=== PATIENT | female | born 1990 | race Caucasian/White ===

== ENCOUNTER 2017-08-29 09:29 | Emergency (ER) | payer MEDICAID ==
[2017-08-29 09:42] VITALS: BP 128/72
--- NOTE | 2017-08-29 10:14 | ED Physician Documentation ---
PD HPI LOWER EXT INJURY - Stated complaint Stated Complaint: FT PX - Chief complaint Chief Complaint: Ext Problem - History obtained from History obtained from: Patient - History of Present Illness PD HPI LOW EXT INJURY LOCATION: Right, Foot Type of injury: Twist Where injury occurred: Home Timing - onset: Enter time (2349), Last night Timing - duration: Hours Timing - details: Abrupt onset, Still present Improved by: Rest, Immobilization Worsened by: Moving, Palpating Associated symptoms: No: Weakness, Numbness, Tingling, Swelling Contributing factors: No: Anticoagulated Similar symptoms before: Has not had sx before Recently seen: Not recently seen - Additional information Additional information: 27-year-old female was walking down some steps last night in her home when she missed a step and twisted her foot. She complains of pain to the bottom of her foot into the lateral aspect of her foot. She denies any pain in her ankle. She has been able to bear some weight on this and has been able to walk but it hurts. She is worried about a fracture. Review of Systems Constitutional: denies: Fever Respiratory: denies: Cough GI: denies: Vomiting, Diarrhea : denies: Dysuria Musculoskeletal: reports: Pain with weight bearing. denies: Neck pain, Back pain PD PAST MEDICAL HISTORY - Past Medical History Past Medical History: No - Past Surgical History Past Surgical History: No - Present Medications Home Medications: Ambulatory Orders Medication Instructions Recorded Confirmed No Known Home Medications [No 08/29/17 08/29/17 Known Home Medications] - Allergies Allergies/Adverse Reactions: Allergies Allergy/AdvReac Type Severity Reaction Status Date / Time Penicillins Allergy Unknown Verified 08/29/17 09:46 - Social History Does the pt smoke?: Yes Smoking Status: Current every day smoker Does the pt drink ETOH?: No Does the pt have substance abuse?: No PD ED PE NORMAL - Vitals Vital signs reviewed: Yes (normal ) - General General: Alert and oriented X 3, No acute distress, Well developed/nourished - HEENT HEENT: Atraumatic, PERRL, EOMI - Neck Neck: Supple, no meningeal sign - Respiratory Respiratory: No respiratory distress - Derm Derm: Normal color, Warm and dry, No rash - Extremities Extremities: No deformity, No edema, Other (There is an abrasion on the dorsum of the right foot over the cuboid. There is no specific tenderness to the ankle or the talofibular ligament area. There is no tenderness to the proximal 5th. there is tenderness to the plantar surface of the right lateral foot. 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, No motor deficit, No sensory deficit, Normal speech Eye Opening: Spontaneous Motor: Obeys Commands Verbal: Oriented GCS Score: 15 - Psych Psych: Normal mood, Normal affect Results - Vitals Vitals: Vital Signs - 24 hr 08/29/17 09:35 Temperature 36.2 C L Heart Rate 64 Respiratory 16 Rate Blood Pressure 128/72 O2 Saturation 99 Oxygen O2 Source Room air - Rads (name of study) right foot Radiology: Prelim report reviewed (Impression: Normal foot radiography.), EMP read indepedently, See rad report PD MEDICAL DECISION MAKING - Sepsis Event Vital Signs: Vital Signs - 24 hr 08/29/17 09:35 Temperature 36.2 C L Heart Rate 64 Respiratory 16 Rate Blood Pressure 128/72 O2 Saturation 99 Oxygen O2 Source Room air Departure - Departure Disposition: 01 Home, Self Care Clinical Impression: Foot contusion Qualifiers: Encounter type: initial encounter Laterality: right Qualified Code(s): S90.31XA - Contusion of right foot, initial encounter Instructions: ED Contusion Foot Follow-Up: [facility] [Provider Group]
--- NOTE | 2017-08-29 10:47 | XRAY Report ---
Procedure Date: 08/29/2017 Accession Number: [id number] / [id number] Procedure: XR - Foot 3 View RT CPT Code: FULL RESULT: EXAM: RIGHT FOOT RADIOGRAPHY EXAM DATE: 08/29/2017 10:35 AM. CLINICAL HISTORY: Twist pain to lateral and plantar foot. COMPARISON: None. TECHNIQUE: 3 views. FINDINGS: Bones: Tiny os perineum. No fractures or bone lesions. Joints: Normal. No subluxations. Soft Tissues: Normal. No soft tissue swelling. IMPRESSION: Normal foot radiography. RADIA
== END 2017-08-29 11:04 | disposition home or self-care (01) ==
LOC: ED 09:29
DX: S90.31XA Contusion of right foot, initial encounter (principal); S90.811A Abrasion, right foot, initial encounter; X50.1XXA Overexertion from prolonged static or awkward postures, initial encounter; Y93.01 Activity, walking, marching and hiking; Y92.009 Unspecified place in unspecified non-institutional (private) residence as the place of occurrence of the external cause; F17.200 Nicotine dependence, unspecified, uncomplicated
CPT/HCPCS: 99282

== ENCOUNTER 2017-12-10 03:48 | Emergency (ER) | payer BC, MEDICAID ==
[2017-12-10 03:57] VITALS: BP 124/70
== END 2017-12-10 04:54 | disposition left against medical advice (07) ==
LOC: ED 03:48
DX: Z53.21 Procedure and treatment not carried out due to patient leaving prior to being seen by health care provider (principal)

== ENCOUNTER 2017-12-12 19:47 | Emergency (ER) | payer BC, MEDICAID ==
--- NOTE | 2017-12-12 21:46 | ED Physician Documentation ---
PD HPI HEENT - Stated complaint Stated Complaint: MOUTH/FACE PX - Chief complaint Chief Complaint: Heent - History obtained from History obtained from: Patient - History of Present Illness Timing - onset: How many days ago (4) Timing - duration: Days (4) Timing - details: Gradual onset, Still present, Other (had used some tooth whitening strips and then next day started to have pain right mandible area which has progressed to right side of face and particularly at jaw/TMJ area. But not hurting with biting nor chewing. No rash nor sores. No congestion. No gum swelling nor tooth tenderness per se.) Location: Mouth, Other (right jaw and face) Improves: No: Medication (not with Naproxen nor Tylenol) Worsens: No: Swalllowing, Temperatures Associated symptoms: No: Fever, Swollen nodes Similar symptoms before: Has not had sx before Recently seen: Emergency Dept (seen at [facility] ER and Dx with TMJ with Rx Naproxen. Not improved nor relieved with that. She does not think it is TMJ per se after reading some about it.) Review of Systems Constitutional: denies: Fever, Chills, Myalgias Throat: denies: Dental pain / toothache (but has face pain), Oral lesions / sores, Sore throat Respiratory: denies: Cough Skin: denies: Rash, Lesions PD PAST MEDICAL HISTORY - Past Medical History Past Medical History: Yes - Past Surgical History Past Surgical History: Yes General: Appendectomy - Present Medications Home Medications: Ambulatory Orders Medication Instructions Recorded Confirmed Amitriptyline [Elavil] 25 mg PO QPM #15 tablet 12/12/17 Dexamethasone [Decadron] 4 mg PO DAILY #5 tablet 12/12/17 Oxycodone HCl/Acetaminophen 1 each PO Q6H PRN #20 tablet 12/12/17 [Percocet 5-325 mg Tablet] - Allergies Allergies/Adverse Reactions: Allergies Allergy/AdvReac Type Severity Reaction Status Date / Time Penicillins Allergy Unknown Verified 12/12/17 19:53 - Social History Does the pt smoke?: Yes Smoking Status: Current every day smoker Does the pt drink ETOH?: Yes Does the pt have substance abuse?: No - Immunizations Immunizations are current?: Yes - POLST Patient has POLST: No PD ED PE NORMAL - Vitals Vital signs reviewed: Yes - General General: Alert and oriented X 3, No acute distress, Well developed/nourished - HEENT HEENT: Ears normal, Moist mucous membranes, Pharynx benign, Dentition benign (no gum tenderness nor swelling. ), Other (TMJs with some clicking and sublux on ROM, but is not tender at the TMJ itself. ) - Neck Neck: Supple, no meningeal sign, No adenopathy - Cardiac Cardiac: RRR, No murmur - Respiratory Respiratory: Clear bilaterally - Derm Derm: Normal color, Warm and dry, No rash Results - Vitals Vitals: Oxygen O2 Source Room air PD MEDICAL DECISION MAKING - ED course Complexity details: considered differential (she has some clicking and sublux at TMJ but not hurting with ROM of jaw nor with occlusion of teeth. No rash. Not tender of skin so less likely shingles. Consider trigeminal neuralgia though not the lancinating character of the pain. ), d/w patient Departure - Departure Disposition: 01 Home, Self Care Clinical Impression: Facial pain, acute, Trigeminal neuralgia of right side of face Condition: Stable Record reviewed to determine appropriate education?: Yes Instructions: ED Acute Pain [facility]O, ED Neuralgia Trigeminal Follow-Up: [facility] [Provider Group] Prescriptions: Amitriptyline [Elavil] 25 mg PO QPM #15 tablet Dexamethasone [Decadron] 4 mg PO DAILY #5 tablet Oxycodone HCl/Acetaminophen [Percocet 5-325 mg Tablet] 1 each PO Q6H PRN #20 tablet PRN Reason: Pain Comments: I would continue the naproxen twice daily as previously prescribed. Add to that Decadron steroid anti-inflammatory for 5 days. Also Elavil nightly for the next week or 2 which tries to help with nerve type pain. Add Tylenol or Percocet if needed for pain. I do not think this is TMJ even though you do have some clicking and popping in that area. However it is not really tender that way. This acts more like a face nerve (trigeminal sensory nerve to the face) irritation called trigeminal neuralgia. See how you do with the medicines over the next few days. You can see your dentist next week as scheduled just to make sure it does not seem to be from a tooth nerve origin. You could also call to follow-up with an ENT specialist which would be more in the realm of the trigeminal neuralgia. If you develop a rash in the next day or 2 then it may be a nerve irritation related to early shingles as an alternative. If so return for added antiviral medicine. Discharge Date/Time: 12/12/17 22:38
[2017-12-12] MEDS ORDERED: oxyCODONE/ACET 5/325 Prepack 4 PO STA (22:17)
[2017-12-12] MEDS ORDERED: DEXAMETHASONE 10 MG/ML VIAL PO STA (22:17)
[2017-12-12] MEDS ORDERED: ACETAMINOPHEN 325 MG TABLET PO STA (22:18)
[2017-12-12 22:34] VITALS: BP 125/75
== END 2017-12-12 22:38 | disposition home or self-care (01) ==
LOC: ED 19:47
DX: G50.1 Atypical facial pain (principal); G50.0 Trigeminal neuralgia; F17.200 Nicotine dependence, unspecified, uncomplicated
CPT/HCPCS: 99283; A9270

== ENCOUNTER 2017-12-20 00:03 | Emergency (ER) | payer BC, MEDICAID ==
[2017-12-20 00:12] VITALS: BP 133/88
[2017-12-20] MEDS ORDERED: DEXAMETHASONE 10 MG/ML VIAL PO STA (00:56)
--- NOTE | 2017-12-20 01:10 | ED Physician Documentation ---
History of Present Illness - Stated complaint Stated Complaint: FACIAL PX - Chief complaint Chief Complaint: Heent - History obtained from History obtained from: Patient - History of Present Illness Timing: How many weeks ago (3) - Additonal information Additional information: 27-year-old female has had a 3-week history of pain in the right side of her face. She describes the pain as a sharp stabbing pain that has a general background pain and an increase in the pain and brief episodes. She states that there is a latency between the time that she chews and the onset of episodes of pain. She was seen in the emergency department 8 days ago treated with a 5-day course of dexamethasone during which time she states her symptoms were very well controlled. She was also started on some amitriptyline she feels that this helps somewhat for her to be able to sleep but does not seem to control her pain. She states over the last 3 days she has not been able to sleep well secondary to episodic pain. Review of Systems Constitutional: denies: Fever, Chills, Myalgias Eyes: denies: Decreased vision Ears: denies: Loss of hearing, Ear pain, Drainage/discharge Nose: denies: Rhinorrhea / runny nose, Congestion, Epistaxis, Sinus pressure / pain Throat: denies: Dental pain / toothache, Oral lesions / sores, Sore throat, Swollen tonsils Cardiac: denies: Chest pain / pressure, Palpitations Respiratory: denies: Dyspnea, Cough GI: denies: Abdominal Pain, Nausea, Vomiting : denies: Dysuria, Frequency Skin: denies: Rash Musculoskeletal: denies: Neck pain, Back pain, Extremity pain Neurologic: denies: Generalized weakness, Focal weakness, Numbness PD PAST MEDICAL HISTORY - Past Medical History Past Medical History: No - Past Surgical History Past Surgical History: Yes General: Appendectomy - Present Medications Home Medications: Ambulatory Orders Medication Instructions Recorded Confirmed Amitriptyline [Elavil] 25 mg PO QPM #15 tablet 12/12/17 Dexamethasone [Decadron] 4 mg PO DAILY #5 tablet 12/12/17 Oxycodone HCl/Acetaminophen 1 each PO Q6H PRN #20 tablet 12/12/17 [Percocet 5-325 mg Tablet] carBAMazepine ER [TEGretol XR] 200 mg PO DAILY #30 tablet 12/20/17 - Allergies Allergies/Adverse Reactions: Allergies Allergy/AdvReac Type Severity Reaction Status Date / Time Penicillins Allergy Unknown Verified 12/20/17 00:12 - Social History Does the pt smoke?: Yes Smoking Status: Current every day smoker Does the pt drink ETOH?: Yes Does the pt have substance abuse?: No - Immunizations Immunizations are current?: Yes - POLST Patient has POLST: No PD ED PE NORMAL - Vitals Vital signs reviewed: Yes (hypertensive ) - General General: Alert and oriented X 3, No acute distress, Well developed/nourished - HEENT HEENT: Atraumatic, PERRL, EOMI, Ears normal, Moist mucous membranes, Pharynx benign, Dentition benign - Neck Neck: Supple, no meningeal sign, No bony TTP, No JVD - Cardiac Cardiac: RRR, No murmur - Respiratory Respiratory: No respiratory distress, Clear bilaterally - Derm Derm: Normal color, Warm and dry, No rash - Extremities Extremities: No deformity, No edema - Neuro Neuro: Alert and oriented X 3, 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, No motor deficit, No sensory deficit, Normal speech Eye Opening: Spontaneous Motor: Obeys Commands Verbal: Oriented GCS Score: 15 - Psych Psych: Normal mood, Normal affect Results - Vitals Vitals: Vital Signs - 24 hr 12/20/17 00:09 Temperature 36.3 C L Heart Rate 90 Respiratory 18 Rate Blood Pressure 133/88 H O2 Saturation 99 Oxygen O2 Source Room air PD MEDICAL DECISION MAKING - ED course Complexity details: reviewed old records, reviewed results, re-evaluated paris mendez, considered differential, d/w patient ED course: 27-year-old female with what appears to be the onset of trigeminal neuralgia in the V2 distribution. She has been into see the dentist and she has not had a follow-up with primary or with her nose and throat. I do believe she has trigeminal neuralgia and here in the emerge department we have given her a dose of dexamethasone again and placed her on some Tegretol to start tonight. I discussed with the patient the follow-up should be with ENT and we have a provider her with a clinic to follow-up with. Departure - Departure Disposition: 01 Home, Self Care Clinical Impression: Trigeminal neuralgia of right side of face Instructions: ED Neuralgia Trigeminal Follow-Up: [facility] [Provider Group] Prescriptions: carBAMazepine ER [TEGretol XR] 200 mg PO DAILY #30 tablet
[2017-12-20] MEDS ORDERED: oxyCODONE/ACET 5/325 Prepack 4 PO STA (01:38)
== END 2017-12-20 02:29 | disposition home or self-care (01) ==
LOC: ED 00:03
DX: G50.0 Trigeminal neuralgia (principal); F17.200 Nicotine dependence, unspecified, uncomplicated
CPT/HCPCS: 99283; A9270

== ENCOUNTER 2017-12-21 21:29 | Emergency (ER) | payer BC, MEDICAID ==
[2017-12-21] MEDS ORDERED: oxyCODONE/ACET 5/325 Prepack 4 PO STA (22:05)
--- NOTE | 2017-12-21 22:18 | ED Physician Documentation ---
PD HPI HEENT - Stated complaint Stated Complaint: RT SIDE FACIAL PX - Chief complaint Chief Complaint: General - History obtained from History obtained from: Patient - History of Present Illness Location: Other (right cheek and to side of eye, but only on right, and without skin rash, sores.) Worsens: Swalllowing Associated symptoms: No: Fever, Congestion, Swollen nodes Recently seen: Emergency Dept (today and about within the past week ago. With Dx of trigeminal neuralgia, Rx Elavil and Naproxen. Had some improvement with the Elavil 25 mg at night, but still hurting quite a bit. Rx Tegretol today in ER. Patient says she is still hurting a lot from the plans.) Review of Systems Constitutional: reports: Myalgias. denies: Fever, Chills Nose: denies: Rhinorrhea / runny nose, Congestion, Sinus pressure / pain Throat: denies: Oral lesions / sores, Swollen tonsils Cardiac: denies: Chest pain / pressure, Palpitations Respiratory: denies: Dyspnea, Cough Skin: denies: Rash, Lesions PD PAST MEDICAL HISTORY - Past Medical History Past Medical History: Yes Other Past Medical History: trigeminal neuralgia - Past Surgical History Past Surgical History: Yes General: Appendectomy - Present Medications Home Medications: Ambulatory Orders Medication Instructions Recorded Confirmed carBAMazepine ER [TEGretol XR] 200 mg PO DAILY #30 tablet 12/20/17 Amitriptyline [Elavil] 25 mg PO HS #30 tablet 12/21/17 Oxycodone HCl/Acetaminophen 1 each PO Q6H PRN #20 tablet 12/21/17 [Percocet 5-325 mg Tablet] - Allergies Allergies/Adverse Reactions: Allergies Allergy/AdvReac Type Severity Reaction Status Date / Time Penicillins Allergy Unknown Verified 12/21/17 21:38 - Social History Does the pt smoke?: Yes Smoking Status: Current every day smoker Does the pt drink ETOH?: Yes Does the pt have substance abuse?: No - Immunizations Immunizations are current?: Yes - POLST Patient has POLST: No PD ED PE NORMAL - Vitals Vital signs reviewed: Yes - General General: Alert and oriented X 3, No acute distress, Well developed/nourished - HEENT HEENT: Ears normal, Pharynx benign - Neck Neck: Supple, no meningeal sign, No adenopathy - Cardiac Cardiac: RRR, No murmur - Respiratory Respiratory: No respiratory distress, Clear bilaterally - Abdomen Abdomen: Soft, Non tender - Derm Derm: Normal color, Warm and dry - Extremities Extremities: No calf tenderness / cord, Other (face is hurting some prior to the ED) - Neuro Neuro: Alert and oriented X 3, 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 I would go ahead and resume the amitriptyline 25 mg nightly that you had been on. Percocet if needed for pains. Follow-up with the ENT specialist this coming Saturday as planned. Discharge Date/Time: 12/21/17 22:27
[2017-12-21 22:20] VITALS: BP 126/74
== END 2017-12-21 22:27 | disposition home or self-care (01) ==
LOC: ED 21:29
DX: G50.0 Trigeminal neuralgia (principal); G50.1 Atypical facial pain; F17.200 Nicotine dependence, unspecified, uncomplicated
CPT/HCPCS: 99283

== ENCOUNTER 2017-12-26 18:14 | Emergency (ER) | payer BC, MEDICAID ==
--- NOTE | 2017-12-26 19:27 | ED Physician Documentation ---
History of Present Illness - Stated complaint Stated Complaint: FACIAL PX - Chief complaint Chief Complaint: Heent - History obtained from History obtained from: Patient - History of Present Illness Timing: Other (1 month) Pain level max: 8 Pain level now: 8 Improved by: percocet Worsened by: palpation - Additonal information Additional information: Right-sided facial pain for the past month. Has an appointment with ENT in the morning. She is out of her Percocet. No fevers. No headaches. No vomiting. Review of Systems Constitutional: denies: Fever, Chills Throat: denies: Sore throat Cardiac: denies: Chest pain / pressure Respiratory: denies: Cough GI: denies: Abdominal Pain, Nausea, Vomiting, Diarrhea : denies: Now EGA Skin: denies: Rash PD PAST MEDICAL HISTORY - Past Medical History Past Medical History: No - Past Surgical History Past Surgical History: Yes General: Appendectomy - Present Medications Home Medications: Ambulatory Orders Medication Instructions Recorded Confirmed carBAMazepine ER [TEGretol XR] 200 mg PO DAILY #30 tablet 12/20/17 12/26/17 Amitriptyline [Elavil] 25 mg PO HS #30 tablet 12/21/17 12/26/17 Oxycodone HCl/Acetaminophen 1 - 2 each PO Q6H PRN #14 tablet 12/26/17 [Percocet 5-325 mg Tablet] carBAMazepine ER [TEGretol XR] 200 mg PO BID #60 tablet 12/26/17 - Allergies Allergies/Adverse Reactions: Allergies Allergy/AdvReac Type Severity Reaction Status Date / Time Penicillins Allergy Unknown Verified 12/26/17 18:19 - Living Situation Living Situation: reports: With family Living Arrangement: reports: At home - Social History Does the pt smoke?: Yes Smoking Status: Current every day smoker Does the pt drink ETOH?: Yes Does the pt have substance abuse?: No - Immunizations Immunizations are current?: Yes - POLST Patient has POLST: No PD ED PE NORMAL - Vitals Vital signs reviewed: Yes - General General: Alert and oriented X 3, Other (appears in pain) - HEENT HEENT: PERRL, Moist mucous membranes, Pharynx benign - Neck Neck: Supple, no meningeal sign - Cardiac Cardiac: RRR, Strong equal pulses - Respiratory Respiratory: No respiratory distress, Clear bilaterally - Derm Derm: Warm and dry - Neuro Neuro: Alert and oriented X 3, 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 Will prescribe a small amount of pain medication for her. She has an appointment with ENT in the morning. She is only on 200 mg a day of Tegretol at this time, will increase this and prescribe an increasing taper for her to see if this controls her symptoms better. Patient counseled regarding signs and symptoms for which I believe and urgent re-evaluation would be necessary. Patient with good understanding of and agreement to plan and is comfortable going home at this time This document was made in part using voice recognition software. While efforts are made to proofread this document, sound alike and grammatical errors may occur. Departure - Departure Disposition: 01 Home, Self Care Clinical Impression: Trigeminal neuralgia of right side of face Condition: Good Instructions: ED Neuralgia Trigeminal Follow-Up: your,doctor tomorrow [Other] Prescriptions: carBAMazepine ER [TEGretol XR] 200 mg PO BID #60 tablet Oxycodone HCl/Acetaminophen [Percocet 5-325 mg Tablet] 1 - 2 each PO Q6H PRN #14 tablet PRN Reason: pain Comments: Increase the Tegretol by 200 mg by mouth daily. Start with 200 mg twice a day tomorrow. Then when you increase, it would be 400 mg in the morning and 200 mg at night then 400 mg in the morning and 400 mg at night etc. Do not drink alcohol or drive while on narcotic pain medicine. Note that many narcotic pain relievers also contain tylenol/acetaminophen. Please ensure that your total dose of acetaminophen from all sources does not exceed 3 grams (3000mg) per day. You may constipated on this medication, take a stool softener such as "Colace" twice a day while you are on it. Also recommend a [id number]-[id number] laxative such as senna or MiraLAX any day that you do not have a bowel movement. If you received narcotic pain medication in the emergency department, do not drive or operate machinery for the next 24 hours. Discharge Date/Time: 12/26/17 19:39
[2017-12-26 19:39] VITALS: BP 147/83
== END 2017-12-26 19:39 | disposition home or self-care (01) ==
LOC: ED 18:14
DX: G50.0 Trigeminal neuralgia (principal); F17.200 Nicotine dependence, unspecified, uncomplicated
CPT/HCPCS: 99283

== ENCOUNTER 2018-02-14 22:54 | Emergency (ER) | payer BC, MEDICAID ==
[2018-02-14 23:04] VITALS: BP 128/74
--- NOTE | 2018-02-15 00:17 | ED Physician Documentation ---
PD HPI HEENT - Stated complaint Stated Complaint: FACIAL PX - Chief complaint Chief Complaint: General - History obtained from History obtained from: Patient - History of Present Illness Timing - onset: How many days ago (several days of right jaw pain. Had similar with Dx trigeminal neuralgia and had subsequently improved with Rx of Tegretol and did well. However does not have Rx now as ran out, and had not been able to get appt.) Timing - details: Gradual onset, Still present, Waxing and waning Worsens: Swalllowing, Noise, Position Associated symptoms: No: Fever, Congestion, Swollen nodes, Facial swelling, Headache Similar symptoms before: Diagnosis (trigeminal neuralgia) Recently seen: Clinic, Emergency Dept Review of Systems Constitutional: denies: Fever, Chills Nose: denies: Rhinorrhea / runny nose, Congestion Throat: reports: Dental pain / toothache. 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 - Past Surgical History Past Surgical History: Yes General: Appendectomy - Present Medications Home Medications: Ambulatory Orders Medication Instructions Recorded Confirmed carBAMazepine ER [TEGretol XR] 200 mg PO DAILY #30 tablet 12/20/17 12/26/17 Amitriptyline [Elavil] 25 mg PO HS #30 tablet 12/21/17 12/26/17 Oxycodone HCl/Acetaminophen 1 - 2 each PO Q6H PRN #14 tablet 12/26/17 [Percocet 5-325 mg Tablet] carBAMazepine ER [TEGretol XR] 200 mg PO BID #60 tablet 12/26/17 Dexamethasone [Decadron] 4 mg PO DAILY #5 tablet 02/15/18 Oxycodone HCl/Acetaminophen 1 each PO Q6H PRN #25 tablet 02/15/18 [Percocet 5-325 mg Tablet] carBAMazepine [Tegretol Xr] 400 mg PO BID #60 tab.er.12h 02/15/18 - Allergies Allergies/Adverse Reactions: Allergies Allergy/AdvReac Type Severity Reaction Status Date / Time Penicillins Allergy Unknown Verified 02/14/18 23:03 - Social History Does the pt smoke?: Yes Smoking Status: Current every day smoker Does the pt drink ETOH?: Yes Does the pt have substance abuse?: No - Immunizations Immunizations are current?: Yes - POLST Patient has POLST: No PD ED PE NORMAL - Vitals Vital signs reviewed: Yes - General General: Alert and oriented X 3, Well developed/nourished, Other (appears in pain and holding right mandible. ) - HEENT HEENT: Dentition benign, Other (TMJ is not tender itself. ) - Neck Neck: Supple, no meningeal sign, No adenopathy Results - Vitals Vitals: Oxygen O2 Source Room air PD MEDICAL DECISION MAKING - ED course Complexity details: reviewed old records, considered differential (I had seen the patient previously for this process in the emergency room. She is being treated as trigeminal neuralgia. She had had improvement on Tegretol but had run out of medicines and as she has not been able to get a primary care as yet. I will renew her prescription. I did not see the need for further testing at this time.), d/w patient Departure - Departure Disposition: 01 Home, Self Care Clinical Impression: Trigeminal neuralgia of right side of face, Facial pain, acute Condition: Stable Record reviewed to determine appropriate education?: Yes Prescriptions: carBAMazepine [Tegretol Xr] 400 mg PO BID #60 tab.er.12h Dexamethasone [Decadron] 4 mg PO DAILY #5 tablet Oxycodone HCl/Acetaminophen [Percocet 5-325 mg Tablet] 1 each PO Q6H PRN #25 tablet PRN Reason: pain Comments: He can try some steroids Decadron daily for the next for 5 days. See if this helps in the interim while waiting for the Tegretol to become effective. Start it at 400 mg daily for 2-3 days and then go to twice a day for 800 mg total daily, the dose that had been effective previously. Follow-up with your primary care within the month so they can continue prescriptions for you. It may still be useful to follow-up with you ENT specialist to see if there are any other treatment options. Discharge Date/Time: 02/15/18 01:15
[2018-02-15] MEDS ORDERED: oxyCODONE/ACET 5/325 Prepack 4 PO STA (00:35)
[2018-02-15] MEDS ORDERED: DEXAMETHASONE 10 MG/ML VIAL PO STA (00:35)
== END 2018-02-15 01:15 | disposition home or self-care (01) ==
LOC: ED 22:54
DX: G50.0 Trigeminal neuralgia (principal); G50.1 Atypical facial pain; F17.200 Nicotine dependence, unspecified, uncomplicated
CPT/HCPCS: 99283

== ENCOUNTER 2018-06-06 16:14 | Emergency (ER) | payer BC, MEDICAID ==
[2018-06-06 16:23] VITALS: BP 123/85
--- NOTE | 2018-06-06 16:53 | ED Physician Documentation ---
History of Present Illness - Stated complaint Stated Complaint: FACIAL PX - Chief complaint Chief Complaint: Neuro - History obtained from History obtained from: Patient - History of Present Illness Timing: How many days ago (3-4) Pain level max: 8 Pain level now: 8 - Additonal information Additional information: 28-year-old female with a history of trigeminal neuralgia. States that she stopped taking her carbamazepine and her symptoms have returned. Restarted on it yesterday. No fevers. No trauma. Nothing makes it better or worse. 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 : None HEENT: None Psych: None Musculoskeletal: None Derm: None - Past Surgical History Past Surgical History: Yes General: Appendectomy - Present Medications Home Medications: Ambulatory Orders Medication Instructions Recorded Confirmed Oxycodone HCl/Acetaminophen 1 - 2 each PO Q6H PRN #14 tablet 06/06/18 [Percocet 5-325 mg Tablet] carBAMazepine ER [TEGretol XR] 400 mg PO BID #120 tablet 06/06/18 carBAMazepine [Tegretol Xr] 200 mg PO BID 06/06/18 - Allergies Allergies/Adverse Reactions: Allergies Allergy/AdvReac Type Severity Reaction Status Date / Time Penicillins Allergy Unknown Verified 02/14/18 23:03 - Social History Does the pt smoke?: Yes Smoking Status: Current every day smoker Does the pt drink ETOH?: Yes Does the pt have substance abuse?: No - Immunizations Immunizations are current?: Yes - POLST Patient has POLST: No PD ED PE NORMAL - Vitals Vital signs reviewed: Yes - General General: Alert and oriented X 3, No acute distress, Well developed/nourished - HEENT HEENT: PERRL, Ears normal, Moist mucous membranes, Pharynx benign - Neck Neck: Supple, no meningeal sign - Derm Derm: Warm and dry - Neuro Neuro: Alert and oriented X 3 - Psych Psych: Normal mood, Normal affect Results - Vitals Vitals: Vital Signs - 24 hr 06/06/18 16:21 Temperature 36.8 C Heart Rate 68 Respiratory 18 Rate Blood Pressure 123/85 H O2 Saturation 99 Oxygen O2 Source Room air PD MEDICAL DECISION MAKING - ED course Complexity details: reviewed old records, considered differential, d/w patient ED course: Patient with a recurrence of her trigeminal neuralgia. Will place her back on her carbamazepine prescribe a small amount of pain medication for her until that time. Patient counseled regarding signs and symptoms for which I believe and urgent re-evaluation would be necessary. Patient with good understanding of and agreement to plan and is comfortable going home at this time This document was made in part using voice recognition software. While efforts are made to proofread this document, sound alike and grammatical errors may occur. Departure - Departure Disposition: 01 Home, Self Care Clinical Impression: Trigeminal neuralgia of right side of face Condition: Good Instructions: ED Neuralgia Trigeminal Follow-Up: your,doctor in 1 week [Other] Prescriptions: carBAMazepine ER [TEGretol XR] 400 mg PO BID #120 tablet Oxycodone HCl/Acetaminophen [Percocet 5-325 mg Tablet] 1 - 2 each PO Q6H PRN #14 tablet PRN Reason: pain Comments: Use the medications as prescribed. Return if you worsen. You should follow-up with ENT for further evaluation. Do not drink alcohol or drive while on narcotic pain medicine. Note that many narcotic pain relievers also contain tylenol/acetaminophen. Please ensure that your total dose of acetaminophen from all sources does not exceed 3 grams (3000mg) per day. You may constipated on this medication, take a stool softener such as "Colace" twice a day while you are on it. Also recommend a [id number] laxative such as senna or MiraLAX any day that you do not have a bowel movement. If you received narcotic pain medication in the emergency department, do not drive or operate machinery for the next 24 hours. Discharge Date/Time: 06/06/18 16:58
== END 2018-06-06 16:58 | disposition home or self-care (01) ==
LOC: ED 16:14
DX: G50.0 Trigeminal neuralgia (principal); F17.200 Nicotine dependence, unspecified, uncomplicated
CPT/HCPCS: 99283

== ENCOUNTER 2018-08-15 12:08 | Emergency (ER) | payer BC, MEDICAID ==
[2018-08-15 12:16] VITALS: BP 134/76
--- NOTE | 2018-08-15 12:29 | ED Physician Documentation ---
History of Present Illness - Stated complaint Stated Complaint: FACIAL PX - Chief complaint Chief Complaint: Heent - History obtained from History obtained from: Patient - Additonal information Additional information: Patient is a 28-year-old female with history of trigeminal neuralgia on the right side presenting with concern for a flare, particularly with pain. Patient denies sensation or strength changes to the face, as well as fever, chills, facial swelling or skin changes, as well as any intraoral dental complaints. Patient takes carbamazepine compliantly and has scheduled primary care follow-up and neurology follow-up. No other improving or worsening factors noted. 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 : None HEENT: None Psych: None Musculoskeletal: None Derm: None - Past Surgical History Past Surgical History: Yes General: Appendectomy - Present Medications Home Medications: Ambulatory Orders Medication Instructions Recorded Confirmed Oxycodone HCl/Acetaminophen 1 - 2 each PO Q6H PRN #14 tablet 06/06/18 [Percocet 5-325 mg Tablet] carBAMazepine ER [TEGretol XR] 400 mg PO BID #120 tablet 06/06/18 carBAMazepine [Tegretol Xr] 200 mg PO BID 06/06/18 Hydrocodone/Acetaminophen 1 each PO Q6H PRN #6 tablet 08/15/18 [Hydrocodon-Acetaminophen 5-325] - Allergies Allergies/Adverse Reactions: Allergies Allergy/AdvReac Type Severity Reaction Status Date / Time Penicillins Allergy Unknown Verified 08/15/18 12:16 - Social History Does the pt smoke?: Yes Smoking Status: Current every day smoker Does the pt drink ETOH?: Yes Does the pt have substance abuse?: No - Immunizations Immunizations are current?: Yes - POLST Patient has POLST: No PD ED PE NORMAL - Vitals Vital signs reviewed: Yes - General General: Alert and oriented X 3, No acute distress, Well developed/nourished - HEENT HEENT: Atraumatic, PERRL, EOMI (Gross visual acuity intact. No nystagmus.), Moist mucous membranes, Pharynx benign, Dentition benign, Other (No evidence of facial or dental abscess.) - Respiratory Respiratory: No respiratory distress - Derm Derm: Normal color, Warm and dry, No rash - Extremities Extremities: No deformity, No tenderness to palpate - Neuro Neuro: Alert and oriented X 3, director of community life 2-12 intact, No motor deficit, No sensory deficit, Normal speech - Psych Psych: Normal mood, Normal affect Results - Vitals Vitals: Vital Signs - 24 hr 08/15/18 12:13 Temperature 36.8 C Heart Rate 98 Respiratory 16 Rate Blood Pressure 134/76 H O2 Saturation 100 Oxygen O2 Source Room air PD MEDICAL DECISION MAKING - ED course Complexity details: reviewed old records, considered differential, d/w patient ED course: Patient has known trigeminal neuralgia which appears relatively unchanged from baseline, although more painful. Do not see evidence of complications including vision changes, sensation or strength changes to face, facial or dental abscess. Do not feel patient requires invasive testing or imaging at this time. Had lengthy discussion with patient regarding chronic pain management, particularly the need for such by her primary care physician and neurologist. Patient is aware of this and has scheduled primary care and neurology follow-up, but needs something temporarily. Also discussed steroids, although patient declines given side effects. Agreed on small dose of narcotics from ED, as well as recommended supportive cares, close follow-up as scheduled, and return precautions. Patient voiced understanding and is comfortable with discharge plan. Departure - Departure Disposition: 01 Home, Self Care Clinical Impression: Trigeminal neuralgia of right side of face Condition: Good Instructions: ED Chronic Pain Management Follow-Up: your,neurologist [Other] - Within 3 Days Prescriptions: Hydrocodone/Acetaminophen [Hydrocodon-Acetaminophen 5-325] 1 each PO Q6H PRN #6 tablet PRN Reason: pain Comments: Please continue home medications as previously instructed. Please use hydrocodone as needed for pain control. Do not combine with alcohol, Tylenol, or driving. If taking [place] regularly, may want to start stool softener or laxative to avoid constipation. Please follow-up with your primary care physician and neurologist in the next 2 to 3 days or as scheduled. Return to ED sooner if expands worsening symptoms or have other concerns.
== END 2018-08-15 12:33 | disposition home or self-care (01) ==
LOC: ED 12:08
DX: G50.0 Trigeminal neuralgia (principal); F17.200 Nicotine dependence, unspecified, uncomplicated
CPT/HCPCS: 99283

== ENCOUNTER 2018-09-01 01:01 | Emergency (ER) | payer BC, MEDICAID ==
[2018-09-01 01:06] VITALS: BP 124/84
[2018-09-01] MEDS ORDERED: KETOROLAC 60 MG/2 ML VIAL IM STA (01:25)
--- NOTE | 2018-09-01 01:28 | ED Physician Documentation ---
History of Present Illness - Stated complaint Stated Complaint: FACE PX - Chief complaint Chief Complaint: Heent - History obtained from History obtained from: Patient - History of Present Illness Timing: Other ("Several months".) Pain level now: 10 - Additonal information Additional information: This is a 28-year-old who presents with complaints that she is been having right-sided facial pain now for several months. She is being treated on the presumptive diagnosis of trigeminal neuralgia. She takes Tegretol 200 mg 2 tablets twice a day and has gotten several prescriptions for narcotics through the emergency department here at [facility]. Her primary care provider has not prescribed narcotic Cognex. She said he gave her a prescription for something that did not do anything to help her pain. She was evaluated by ear nose and throat who did not feel they were the appropriate specialty to manage trigeminal neuralgia she has an appointment scheduled at the [place] neurology clinic at the end of September. Patient said that sometimes his pain flares up to the point that she cannot sleep and she has not been able to sleep the past 2 nights. She does not have a fever. She denies . No visual symptoms. Patient was evaluated previously by a dentist And not found to have a dental source of her pain. 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 Review of Systems Constitutional: denies: Fever Ears: denies: Ear pain Nose: denies: Congestion Throat: denies: Dental pain / toothache, Sore throat : denies: Now EGA Skin: denies: Rash PD PAST MEDICAL HISTORY - Past Medical History Past Medical History: Yes Cardiovascular: None Respiratory: None Neuro: Other Endocrine/Autoimmune: None GI: None MEDICAL RECORDS TECH: None : None HEENT: None Psych: None Musculoskeletal: None Derm: None Other Past Medical History: trigeminal neuralgia - Past Surgical History Past Surgical History: Yes General: Appendectomy - Present Medications Home Medications: Ambulatory Orders Medication Instructions Recorded Confirmed carBAMazepine ER [TEGretol XR] 400 mg PO BID 09/01/18 09/01/18 - Allergies Allergies/Adverse Reactions: Allergies Allergy/AdvReac Type Severity Reaction Status Date / Time Penicillins Allergy Unknown Verified 09/01/18 01:06 - Social History Does the pt smoke?: Yes Smoking Status: Current every day smoker Does the pt drink ETOH?: Yes Does the pt have substance abuse?: No Substance Use and Type: Marijuana - Immunizations Immunizations are current?: Yes - POLST Patient has POLST: No PD ED PE NORMAL - Vitals Vital signs reviewed: Yes - General General: Alert and oriented X 3, No acute distress, Well developed/nourished - HEENT HEENT: Atraumatic, PERRL, EOMI, Moist mucous membranes, Other (There is a right serous effusion. No erythema. 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 She is been seen here in the emergency department multiple times and received prescriptions for narcotics. I explained to her that I will not provid e a prescription for narcotics from the emergency department for a chronic, particularly undifferentiated problem. She was offered a Toradol injection which she did accept and she will be discharged with a prepack for Vicodin to manage her absolutely acute pain tonight so she can sleep. She needs to follow back up with her primary care provider for further pain management. Departure - Departure Disposition: 01 Home, Self Care Clinical Impression: Facial pain, acute Condition: Good Instructions: ED Chronic Pain Management Follow-Up: your,doctor [Other] ([facility]) Comments: You must follow-up with your primary care provider for management of the pain. Make sure that you keep the appointment with a neurologist.
[2018-09-01] MEDS ORDERED: HYDROcod/ACET 5/325 Prepack 4 PO STA (01:31)
== END 2018-09-01 01:41 | disposition home or self-care (01) ==
LOC: ED 01:01
DX: R51 Headache (principal); F17.200 Nicotine dependence, unspecified, uncomplicated
CPT/HCPCS: 96372; 99283; 99284

== ENCOUNTER 2018-09-01 19:45 | Emergency (ER) | payer BC, MEDICAID ==
[2018-09-01 19:53] VITALS: BP 121/72
[2018-09-01] MEDS ORDERED: KETOROLAC 60 MG/2 ML VIAL IM STA (20:14)
--- NOTE | 2018-09-01 20:17 | ED Physician Documentation ---
History of Present Illness - Stated complaint Stated Complaint: FACIAL PX - Chief complaint Chief Complaint: Heent - History obtained from History obtained from: Patient, Family - History of Present Illness Timing: How many days ago (several) Pain level max: 9 Pain level now: 7 - Additonal information Additional information: R facial pain for the past several days. States is using tegretol BID. Has used vicodin in the past for breakthrough pain. Sees her doctor on Saturday. Nothing makes it better or worse. No fevers. 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 : None HEENT: None Psych: None Musculoskeletal: None Derm: None - Past Surgical History Past Surgical History: Yes General: Appendectomy - Present Medications Home Medications: Ambulatory Orders Medication Instructions Recorded Confirmed Hydrocodone/Acetaminophen 1 - 2 each PO Q6H PRN #10 tablet 09/01/18 [Hydrocodon-Acetaminophen 5-325] carBAMazepine ER [TEGretol XR] 400 mg PO BID 09/01/18 09/01/18 carBAMazepine [TEGretol] 600 mg PO BID #90 tablet 09/01/18 - Allergies Allergies/Adverse Reactions: Allergies Allergy/AdvReac Type Severity Reaction Status Date / Time Penicillins Allergy Unknown Verified 09/01/18 19:53 - Social History Does the pt smoke?: Yes Smoking Status: Current every day smoker Does the pt drink ETOH?: Yes Does the pt have substance abuse?: No - Immunizations Immunizations are current?: Yes - POLST Patient has POLST: No PD ED PE NORMAL - Vitals Vital signs reviewed: Yes - General General: Alert and oriented X 3, No acute distress - HEENT HEENT: Moist mucous membranes, Pharynx benign, Dentition benign - Neck Neck: Supple, no meningeal sign - Derm Derm: Warm and dry - Neuro Neuro: Alert and oriented X 3 Results - Vitals Vitals: Vital Signs - 24 hr 09/01/18 19:48 Temperature 36.6 C Heart Rate 84 Respiratory 17 Rate Blood Pressure 121/72 O2 Saturation 100 Oxygen O2 Source Room air PD MEDICAL DECISION MAKING - ED course Complexity details: considered differential, d/w patient ED course: Will increase her Tegretol to 600 mg twice a day. We will also prescribe a small amount of Vicodin for breakthrough pain. She has an appoint with neurology next month. Patient counseled regarding signs and symptoms for which I believe and urgent re-evaluation would be necessary. Patient with good understanding of and agreement to plan and is comfortable going home at this time This document was made in part using voice recognition software. While efforts are made to proofread this document, sound alike and grammatical errors may occur. Departure - Departure Disposition: Home, Self Care Clinical Impression: Trigeminal neuralgia of right side of face Condition: Good Instructions: ED Acute Pain [facility] Follow-Up: your,doctor in 1 week [Other] Prescriptions: carBAMazepine [TEGretol] 600 mg PO BID #90 tablet Hydrocodone/Acetaminophen [Hydrocodon-Acetaminophen 5-325] 1 - 2 each PO Q6H PRN #10 tablet PRN Reason: pain Comments: Use the medications as prescribed. Return if you worsen. Follow-up with your doctor for further care. Do not drink alcohol or drive while on narcotic pain medicine. Note that many narcotic pain relievers also contain tylenol/acetaminophen. Please ensure that your total dose of acetaminophen from all sources does not exceed 3 grams (3000mg) per day. You may constipated on this medication, take a stool softener such as "Colace" twice a day while you are on it. Also recommend a [id number] laxative such as senna or MiraLAX any day that you do not have a bowel movement. If you received narcotic pain medication in the emergency department, do not drive or operate machinery for the next 24 hours. Discharge Date/Time: 09/01/18 20:21
== END 2018-09-01 20:21 | disposition home or self-care (01) ==
LOC: ED 19:45
DX: G50.0 Trigeminal neuralgia (principal); F17.200 Nicotine dependence, unspecified, uncomplicated
CPT/HCPCS: 96372; 99283; 99284

== ENCOUNTER 2018-09-08 01:26 | Emergency (ER) | payer BC, MEDICAID ==
--- NOTE | 2018-09-08 02:11 | ED Physician Documentation ---
History of Present Illness - Stated complaint Stated Complaint: FACIAL PAIN - Chief complaint Chief Complaint: Heent - History obtained from History obtained from: Patient - History of Present Illness Timing: Chronic Pain level now: 8 Improved by: nothing Worsened by: palpation is minor contributing factor, but mostly no apparent inciting or contributing factors - Additonal information Additional information: my face hurts, per patient. c/o right-sided pain originally started seven months ago but worse this past week. has appointment with PCP tomorrow (Saturday), requesting pain medication to control pain and allow her to sleep tonight. 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 : None HEENT: None Psych: None Musculoskeletal: None Derm: None - Past Surgical History Past Surgical History: Yes General: Appendectomy - Present Medications Home Medications: Ambulatory Orders Medication Instructions Recorded Confirmed Hydrocodone/Acetaminophen 1 - 2 each PO Q6H PRN #10 tablet 09/01/18 [Hydrocodon-Acetaminophen 5-325] carBAMazepine [TEGretol] 600 mg PO BID 09/08/18 09/08/18 - Allergies Allergies/Adverse Reactions: Allergies Allergy/AdvReac Type Severity Reaction Status Date / Time Penicillins Allergy Unknown Verified 09/08/18 01:34 - Social History Does the pt smoke?: Yes Smoking Status: Current every day smoker Does the pt drink ETOH?: Yes Does the pt have substance abuse?: No - Immunizations Immunizations are current?: Yes - POLST Patient has POLST: No PD ED PE NORMAL - Vitals Vital signs reviewed: Yes - General General: Alert and oriented X 3, No acute distress, Well developed/nourished - HEENT HEENT: Atraumatic, PERRL, EOMI, Moist mucous membranes, Pharynx benign - Neck Neck: Supple, no meningeal sign Results - Vitals Vitals: Oxygen O2 Source Room air PD MEDICAL DECISION MAKING - ED course Complexity details: reviewed old records, considered differential, d/w patient ED course: patient c/o chronic right facial pain which is possibly trigeminal neuralgia, although not clear who arrived at this diagnosis; she is to see a neurologist at end of next month (first meeting with neurology). she has frequent ED visits for same, and of note, PILLO reflects she was in [facility] ED 12/20/17, then ED 12/21/17 and then returned to [facility] ED the same day 12/21/17. Also of note, patient was in [facility] ED one week ago (09/01/18) and then ED the same day and returned to [facility] ED again the same day. I was willing to give prepack of vicodin but no rx at this time. also given toradol as she says this has sometimes provided some relief. Departure - Departure Disposition: 01 Home, Self Care Clinical Impression: Trigeminal neuralgia of right side of face Condition: Good Instructions: ED Neuralgia Trigeminal Discharge Date/Time: 09/08/18 03:35
[2018-09-08] MEDS ORDERED: KETOROLAC 60 MG/2 ML VIAL IM STA (02:45)
[2018-09-08] MEDS ORDERED: HYDROcod/ACET 5/325 Prepack 4 PO STA (02:45)
[2018-09-08 03:52] VITALS: BP 124/80
== END 2018-09-08 03:35 | disposition home or self-care (01) ==
LOC: ED 01:26
DX: G50.0 Trigeminal neuralgia (principal); F17.200 Nicotine dependence, unspecified, uncomplicated
CPT/HCPCS: 96372; 99282; 99283

== ENCOUNTER 2018-09-18 10:27 | Emergency (ER) | payer BC, MEDICAID ==
[2018-09-18] MEDS ORDERED: KETOROLAC 60 MG/2 ML VIAL IM STA (12:01)
--- NOTE | 2018-09-18 12:33 | ED Physician Documentation ---
PD HPI HEENT - Stated complaint Stated Complaint: FACIAL PX - Chief complaint Chief Complaint: General - History obtained from History obtained from: Patient - History of Present Illness Timing - onset: How many days ago (2) Timing - details: Still present Location: Other (Right side of the face.) Similar symptoms before: Diagnosis (trigeminal neuralgia) Recently seen: Emergency Dept (2 weeks ago.) - Treatment prior to arrival Treatment prior to arrival: Tegretol. - Additional information Additional information: the patient is a 28-year-old female who presents with right facial pain. She has a history of similar symptoms, diagnosed as trigeminal neuralgia. This episode started about 2 days ago. The last time it was this bad was about 2 weeks ago. She has been using Tegretol without relief. She denies fever, headache, toothache, or earache. 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 : None HEENT: None Psych: None Musculoskeletal: None Derm: None - Past Surgical History Past Surgical History: Yes General: Appendectomy - Present Medications Home Medications: Ambulatory Orders Medication Instructions Recorded Confirmed Hydrocodone/Acetaminophen 1 - 2 each PO Q6H PRN #10 tablet 09/01/18 [Hydrocodon-Acetaminophen 5-325] carBAMazepine [TEGretol] 600 mg PO BID 09/08/18 09/08/18 Hydrocodone/Acetaminophen 1 - 2 each PO Q6H PRN #10 tablet 09/18/18 [Hydrocodon-Acetaminophen 5-325] - Allergies Allergies/Adverse Reactions: Allergies Allergy/AdvReac Type Severity Reaction Status Date / Time Penicillins Allergy Unknown Verified 09/18/18 10:32 - Social History Does the pt smoke?: Yes Smoking Status: Current every day smoker Does the pt drink ETOH?: Yes Does the pt have substance abuse?: No - Immunizations Immunizations are current?: Yes - POLST Patient has POLST: No PD ED PE NORMAL - Vitals Vital signs reviewed: Yes (normal) - General General: Alert and oriented X 3, Well developed/nourished - HEENT HEENT: Atraumatic, PERRL, EOMI, Ears normal, Pharynx benign (mild tenderness to palpation over the right temporomandibular region of the face. No tenderness to palpation over the temporal artery. No tenderness with palpation of individual teeth. No facial swelling.) - Neck Neck: Supple, no meningeal sign, No adenopathy - Cardiac Cardiac: RRR - Respiratory Respiratory: No respiratory distress, Clear bilaterally - Abdomen Abdomen: Soft, Non tender - Back Back: No CVA TTP - Derm Derm: No rash - Extremities Extremities: No tenderness to palpate - Neuro Neuro: Alert and oriented X 3, No motor deficit, No sensory deficit, Normal speech Results - Vitals Vitals: Oxygen O2 Source Room air PD MEDICAL DECISION MAKING - ED course Complexity details: reviewed old records, re-evaluated patient, considered differential, d/w patient ED course: The patient's presentation is consistent with trigeminal neuralgia. Her physical examination does not suggest meningitis, temporal arteritis, otitis, dental abscess, or peritonsillar abscess. Treatment in the emergency department included administration of ketorolac 60 mg IM. She is being discharged with a prescription for Vicodin, 10 tablets. I discussed with her symptomatic treatment, outpatient follow-up, as well as potentially worrisome signs or symptoms that should prompt reevaluation in the emergency department. Departure - Departure Disposition: 01 Home, Self Care Clinical Impression: Trigeminal neuralgia of right side of face Condition: Stable Instructions: ED Neuralgia Trigeminal Follow-Up: [facility] [Provider Group] Prescriptions: Hydrocodone/Acetaminophen [Hydrocodon-Acetaminophen 5-325] 1 - 2 each PO Q6H PRN #10 tablet PRN Reason: pain Comments: Apply ice pack to the right-sided face intermittently. You can use ibuprofen up to 800 mg 3 times daily for anti-inflammatory effect. You can use Vicodin as prescribed if needed for pain. Follow-up with your primary physician as planned. Return to the emergency department if you develop increasing facial pain or swelling, or otherwise worsening symptoms. Discharge Date/Time: 09/18/18 12:37
[2018-09-18 12:37] VITALS: BP 117/61
== END 2018-09-18 12:37 | disposition home or self-care (01) ==
LOC: ED 10:27
DX: G50.0 Trigeminal neuralgia (principal); F17.200 Nicotine dependence, unspecified, uncomplicated
CPT/HCPCS: 96372; 99283; 99284

== ENCOUNTER 2018-10-13 11:16 | Emergency (ER) | payer BC, MEDICAID ==
[2018-10-13] MEDS ORDERED: KETOROLAC 60 MG/2 ML VIAL IM STA (13:17)
--- NOTE | 2018-10-13 13:21 | ED Physician Documentation ---
History of Present Illness - Stated complaint Stated Complaint: FACIAL PAIN - Chief complaint Chief Complaint: Heent - History obtained from History obtained from: Patient - History of Present Illness Timing: How many days ago (2) Pain level max: 6 Pain level now: 6 - Additonal information Additional information: 28-year-old female presents to the emergency department right-sided facial pain. History of trigeminal neuralgia. Saw her neurologist recently and is scheduled for Botox tomorrow. Pain increased yesterday and today. Nothing makes it better or worse. She is on Tegretol at home. No fevers. No trauma. No facial swelling. Feels similar to her prior episodes. Patient is taken Motrin and Tyle nol in the past without relief. 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 HEENT: None Psych: None Musculoskeletal: None Derm: None - Past Surgical History Past Surgical History: Yes General: Appendectomy - Present Medications Home Medications: Ambulatory Orders Medication Instructions Recorded Confirmed carBAMazepine [TEGretol] 600 mg PO BID 09/08/18 09/08/18 Hydrocodone/Acetaminophen 1 - 2 each PO Q6H PRN #10 tablet 10/13/18 [Hydrocodon-Acetaminophen 5-325] - Allergies Allergies/Adverse Reactions: Allergies Allergy/AdvReac Type Severity Reaction Status Date / Time Penicillins Allergy Unknown Verified 10/13/18 11:28 - Social History Does the pt smoke?: Yes Smoking Status: Current every day smoker Does the pt drink ETOH?: Yes Does the pt have substance abuse?: No - Immunizations Immunizations are current?: Yes - POLST Patient has POLST: No PD ED PE NORMAL - Vitals Vital signs reviewed: Yes - General General: Alert and oriented X 3, No acute distress - HEENT HEENT: Ears normal, Moist mucous membranes, Pharynx benign, Dentition benign, Other (R sided facial tenderness. no swelling. no redness. ) - Neck Neck: Supple, no meningeal sign - Cardiac Cardiac: RRR - Respiratory Respiratory: No respiratory distress, Clear bilaterally - Derm Derm: Warm and dry - Neuro Neuro: Alert and oriented X 3 - Psych Psych: Normal mood, Normal affect Results - Vitals Vitals: Vital Signs - 24 hr 10/13/18 11:27 Temperature 36 C L Heart Rate 86 Respiratory 22 Rate Blood Pressure 130/70 O2 Saturation 99 Oxygen O2 Source Room air PD MEDICAL DECISION MAKING - ED course Complexity details: reviewed old records, considered differential, d/w patient ED course: Patient with an acute exacerbation of her chronic trigeminal neuralgia. Will place on a small amount of pain medication for home. She has Botox tomorrow. Patient counseled regarding signs and symptoms for which I believe and urgent re-evaluation would be necessary. Patient with good understanding of and agreement to plan and is comfortable going home at this time This document was made in part using voice recognition software. While efforts are made to proofread this document, sound alike and grammatical errors may occur. reviewed PILLO and PDMP Departure - Departure Disposition: 01 Home, Self Care Clinical Impression: Trigeminal neuralgia of right side of face Condition: Good Instructions: ED Neuralgia Trigeminal Follow-Up: ANDRES LEIGH MD [Primary Care Provider] - Within 1 week Prescriptions: Hydrocodone/Acetaminophen [Hydrocodon-Acetaminophen 5-325] 1 - 2 each PO Q6H PRN #10 tablet PRN Reason: pain Comments: Continue your medications at home. Make sure to receive your botox tomorrow as scheduled. Do not drink alcohol or drive while on narcotic pain medicine. Note that many narcotic pain relievers also contain tylenol/acetaminophen. Please ensure that your total dose of acetaminophen from all sources does not exceed 3 grams (3000mg) per day. You may constipated on this medication, take a stool softener such as "Colace" twice a day while you are on it. Also recommend a [id number] laxative such as senna or MiraLAX any day that you do not have a bowel movement. If you received narcotic pain medication in the emergency department, do not drive or operate machinery for the next 24 hours.
[2018-10-13] MEDS ORDERED: HYDROcod/ACETAM 5/325 MG TABLET PO STA (13:22)
[2018-10-13 13:37] VITALS: BP 125/67
== END 2018-10-13 13:34 | disposition home or self-care (01) ==
LOC: ED 11:16
DX: G50.0 Trigeminal neuralgia (principal); F17.200 Nicotine dependence, unspecified, uncomplicated
CPT/HCPCS: 99283; 99284; A9270; 93005

== ENCOUNTER 2018-11-16 03:41 | Emergency (ER) | payer BC ==
[2018-11-16 03:48] VITALS: BP 130/80
--- NOTE | 2018-11-16 04:32 | ED Physician Documentation ---
History of Present Illness - Stated complaint Stated Complaint: LEFT HAND CUT - Chief complaint Chief Complaint: Laceration - Additonal information Additional information: This is a 28-year-old female who presents after cutting her left index finger with a clean knife. She was trying to separate some frozen biscuits and the knife slipped and lacerated her finger. She has a little bit of numbness over the left distal finger, but she is able to move the finger normally. This occurred around an hour and a half prior to her arrival here. The bleeding is controlled. 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 HEENT: None Psych: None Musculoskeletal: None Derm: None Other Past Medical History: Trigeminal Neuralgia - Past Surgical History Past Surgical History: Yes General: Appendectomy - Present Medications Home Medications: Ambulatory Orders Medication Instructions Recorded Confirmed carBAMazepine [TEGretol] 600 mg PO BID 09/08/18 11/16/18 - Allergies Allergies/Adverse Reactions: Allergies Allergy/AdvReac Type Severity Reaction Status Date / Time Penicillins Allergy Unknown Verified 11/16/18 03:49 - Social History Does the pt smoke?: Yes Smoking Status: Current every day smoker Does the pt drink ETOH?: Yes Does the pt have substance abuse?: No - Immunizations Immunizations are current?: Yes - POLST Patient has POLST: No PD ED PE NORMAL - Vitals Vital signs reviewed: Yes - General General: Alert and oriented X 3, No acute distress - HEENT HEENT: Atraumatic - Cardiac Cardiac: RRR - Derm Derm: Warm and dry - Extremities Extremities: Other (2.5 cm laceration over the mid-distal left index finger. No active bleeding. Laceration extends to the subcutaneous tissue but there is no tendon or bone exposed. There is slightly reduced sensation distal to the laceration on the ulnar aspect of the finger with the laceration. Patient is able to flex her finger normally including isolated DIP flexion without issue. Capillary refill is brisk.) - Neuro Neuro: Alert and oriented X 3 Results - Vitals Vitals: Oxygen O2 Source Room air Procedures - Laceration (location) Finger Length in cm: 2.5 Wound type: Linear Neurovascular status: Motor intact, Vascular intact, Other (Distal to the laceration patient has reduced sensation to light touch. Capillary refill is brisk.) Anesthesia: Lidocaine 1% Wound Preparation: Irrigated copiously NS, Wound explored, To the base Skin layer closure: Interrupted, Other (5-0 ethilon) Other: Patient tolerated well, No complications Complexity: Simple PD MEDICAL DECISION MAKING - ED course Complexity details: considered differential (Laceration, tendon injury, nerve injury) ED course: Patient presents with an isolated laceration to her her index finger. She is up-to-date with her tetanus. The wound itself is clean, and is irrigated copiously. There is no tendon involvement, she has no bony tenderness to suggest fracture, no signs of foreign body when the wound is thoroughly explored. She does have some reduced sensation distal to the laceration on the ulnar side of her finger, and she likely damaged a superficial nerve branch. Given that there are no other signs of structural injury, we closed the wound as noted above, and patient was instructed to follow-up for suture removal in 7 to 10 days. We discussed signs of infection and the patient should return if she develops any of these. Return precautions were discussed and patient was discharged home. Departure - Departure Disposition: 01 Home, Self Care Clinical Impression: Laceration Condition: Good Instructions: ED Laceration All Follow-Up: Your,PCP [Other] (For suture removal in 7 to 10 days.) Comments: You cut your finger today, this has been repaired with stitches that should be removed in 7 to 10 days. If you develop redness and swelling of the finger, redness that is streaking up the hand, fever, or other concerning symptoms please return to the emergency department. You may take Tylenol or ibuprofen for pain. Discharge Date/Time: 11/16/18 06:00
== END 2018-11-16 06:00 | disposition home or self-care (01) ==
LOC: ED 03:41
DX: S61.211A Laceration without foreign body of left index finger without damage to nail, initial encounter (principal); W26.0XXA Contact with knife, initial encounter; Y93.G1 Activity, food preparation and clean up; F17.200 Nicotine dependence, unspecified, uncomplicated
CPT/HCPCS: 12001; 99281

== ENCOUNTER 2018-12-02 00:13 | Emergency (ER) | payer BC, MEDICAID ==
[2018-12-02 00:45] LABS: GLUCOSE, URINE (UA) NEGATIVE (NEGATIVE); KETONES,URINE (UA) >=80 mg/dL (NEGATIVE); LEUKOCYTE ESTERASE, URINE MODERATE (NEGATIVE); NITRITE,URINE NEGATIVE (NEGATIVE); OCCULT BLOOD,URINE LARGE (NEGATIVE); PROTEIN,URINE >=300 mg/dL (NEGATIVE); UROBILINOGEN,URINE 4 E.U./dL (NORMAL)
[2018-12-02 00:52] LABS: BACTERIA,URINE Few /HPF (None Seen); BILIRUBIN,URINE NEGATIVE (NEGATIVE); CLARITY,URINE SL. CLOUDY (CLEAR); HCG UR QUAL NEGATIVE; ICTOTEST,URINE NEGATIVE; SQUAMOUS EPITHELIAL CELL,UR RARE Squamous (<= Few)
[2018-12-02 02:22] LABS: BASOPHILS # (AUTO) 0.1 10^3/uL (0.0-0.1); BASOPHILS % (AUTO) 0.5 %; EOSINOPHILS # (AUTO) 0.1 10^3/uL (0.0-0.7); EOSINOPHILS % (AUTO) 0.4 %; HGB - HEMOGLOBIN 15.2 g/dL (12.0-16.0); LYMPHOCYTES % (AUTO) 11.7 %; MEAN CORPUSCULAR HEMOGLOBIN 32.5 pg (27.0-31.0); MEAN CORPUSCULAR HGB CONC 33.9 g/dL (32.0-36.0); MEAN CORPUSCULAR VOLUME 95.9 fL (81.0-99.0); MEAN PLATELET VOLUME 9.6 fL (7.9-10.8); MONOCYTES # (AUTO) 1.5 10^3/uL (0.0-1.0); MONOCYTES % (AUTO) 8.6 %; NEUTROPHILS # (AUTO) 13.5 10^3/uL (1.5-6.6); NEUTROPHILS % (AUTO) 78.4 %; PLT - PLATELET COUNT 452 10^3/uL (130-450); RED BLOOD COUNT 4.67 10^6/uL (4.20-5.40); RED CELL DISTRIBUTION WIDTH 13.2 % (12.0-15.0); WHITE BLOOD COUNT 17.2 x10^3/uL (4.8-10.8)
--- NOTE | 2018-12-02 02:29 | ED Physician Documentation ---
PD HPI ABD PAIN - Stated complaint Stated Complaint: LOWER BACK/ ABD PX - Chief complaint Chief Complaint: Abd Pain - History obtained from History obtained from: Patient - History of Present Illness Timing - onset: How many days ago (few) Timing - duration: Days (few) Timing - details: Abrupt onset (over part of a day), Still present Quality: Aching, Sharp, Pain Location: LLQ Radiation: Left flank Improved by: No: Eating Worsened by: No: Eating, Breathing, Position Associated symptoms: Fever, Nausea, Vomiting (yesterday). No: Diarrhea, Dysuria, Vaginal bleeding, Vaginal dc Similar symptoms before: Has not had sx before Review of Systems Constitutional: reports: Fever, Chills, Myalgias Nose: denies: Rhinorrhea / runny nose, Congestion Throat: denies: Sore throat Respiratory: denies: Cough GI: reports: Abdominal Pain, Nausea, Vomiting (yesterday, not today). 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 HEENT: None Psych: None Musculoskeletal: None Derm: None - Past Surgical History Past Surgical History: Yes General: Appendectomy - Present Medications Home Medications: Ambulatory Orders Medication Instructions Recorded Confirmed Hydrocodone/Acetaminophen [[place] 1 each PO Q6H PRN #15 tablet 12/02/18 5-325 Tablet] Naproxen 375 mg PO BID #20 tablet 12/02/18 Ondansetron Odt [Zofran] 4 mg TL Q6H PRN #10 tablet 12/02/18 Sulfamethox/Trimeth 800/160 1 each PO BID #20 tablet 12/02/18 [Bactrim Ds 800/160] - Allergies Allergies/Adverse Reactions: Allergies Allergy/AdvReac Type Severity Reaction Status Date / Time Penicillins Allergy Unknown Verified 12/02/18 00:29 - Social History Does the pt smoke?: Yes Smoking Status: Current every day smoker Does the pt drink ETOH?: Yes Does the pt have substance abuse?: No - Immunizations Immunizations are current?: Yes - POLST Patient has POLST: No PD ED PE NORMAL - Vitals Vital signs reviewed: Yes - General General: Alert and oriented X 3, Well developed/nourished, Other (Appears moderately uncomfortable due to left flank pain.) - HEENT HEENT: Moist mucous membranes, Pharynx benign - Neck Neck: Supple, no meningeal sign, No adenopathy - Cardiac Cardiac: RRR, No murmur - Respiratory Respiratory: Clear bilaterally - Abdomen Abdomen: Normal bowel sounds, Soft, Non distended, No organomegaly, Other (Some tenderness in the left lower abdomen without any percussion rebound nor referred tenderness. There is significant left CVA tenderness. There is no rash nor sores.) - Female Female : Deferred - Rectal Rectal: Deferred - Derm Derm: Normal color, Warm and dry, No rash - Neuro Neuro: Alert and oriented X 3, No motor deficit, Normal speech Results - Vitals Vitals: Vital Signs - 24 hr 12/02/18 12/02/18 12/02/18 00:26 01:49 03:19 Temperature 37 C Heart Rate 92 79 54 L Respiratory 18 18 16 Rate Blood Pressure 127/62 120/60 116/69 O2 Saturation 100 99 100 12/02/18 05:07 Temperature 37.2 C Heart Rate 76 Respiratory 18 Rate Blood Pressure 112/58 L O2 Saturation 99 Oxygen O2 Source Room air - Labs Labs: Laboratory Tests 12/02/18 12/02/18 12/02/18 00:32 01:46 01:46 WBC 17.2 H RBC 4.67 Hgb 15.2 Hct 44.8 MCV 95.9 MCH 32.5 H MCHC 33.9 RDW 13.2 Plt Count 452 H MPV 9.6 Neut # (Auto) 13.5 H Lymph # (Auto) 2.0 [place] # (Auto) 1.5 H Eos # (Auto) 0.1 Baso # (Auto) 0.1 Absolute Nucleated RBC 0.00 Nucleated RBC % 0.0 Sodium 140 Potassium 2.9 L Chloride 95 L Carbon Dioxide 30 Anion Gap 15.0 H BUN 12 Creatinine 0.9 Estimated GFR (MDRD) 75 L Glucose 126 H Calcium 9.6 Total Bilirubin 0.7 AST 28 ALT 28 Alkaline Phosphatase 91 Total Protein 7.7 Albumin 4.7 Globulin 3.0 Albumin/Globulin Ratio 1.6 Lipase 59 H Urine Color YELLOW Urine Clarity SL. CLOUDY Urine pH 7.0 Ur Specific [place] 1.020 Urine Protein >=300 H Urine Glucose (UA) NEGATIVE Urine Ketones >=80 H Urine Occult Blood LARGE H Urine Nitrite NEGATIVE Urine Bilirubin NEGATIVE Urine Urobilinogen 4 H Ur Leukocyte Esterase MODERATE H Urine RBC 11-25 H Urine WBC 11-25 H Ur Squamous Epith Cells RARE Squamous Urine Bacteria Few Ur Microscopic Review INDICATED Urine Culture Comments INDICATED Urine HCG, Qual NEGATIVE - Rads (name of study) KUB CT Radiology: Prelim report reviewed (no kidney stones nor signs of obstruction. ), See rad report PD MEDICAL DECISION MAKING - ED course Complexity details: reviewed results (concern for stone with such pain left flank. We did a CT scan to ensure no stone as that would change the treatment option for the pyelonephritis. The CT did not show any stones nor degree of obstruction. She is improved with IV fluids and medication options. Shared decision was for her to try going home and see how she does.), re-evaluated patient (She is considerably improved with IV fluids antiemetics and pain medicines. She is feeling comfortable at this time. She is able to eat and drink fluids and small snack. Her pain is tolerable. She does have signs of it urinary tract infection and symptoms would be consistent with pyelonephritis. Given the abruptness of the pain she had and localized to the left, I did do CT scan to ensure no high-grade obstruction or stones. This was normal and the patient would prefer trying treatment at home.), considered differential, d/w patient Departure - Departure Disposition: 01 Home, Self Care Clinical Impression: Pyelonephritis, acute Clinical Impression: (Ruled Out): Kidney stone Condition: Stable Record reviewed to determine appropriate education?: Yes Instructions: ED Kidney Infec Female Follow-Up: ANDRES LEIGH MD [Primary Care Provider] - Prescriptions: Hydrocodone/Acetaminophen [S[place] 5-325 Tablet] 1 each PO Q6H PRN #15 tablet PRN Reason: Pain Naproxen 375 mg PO BID #20 tablet Ondansetron Odt [Zofran] 4 mg TL Q6H PRN #10 tablet PRN Reason: Nausea / Vomiting Sulfamethox/Trimeth 800/160 [Bactrim Ds 800/160] 1 each PO BID #20 tablet Comments: Small frequent fluids and stay hydrated. Tylenol every 4-6 hours as needed for fevers or pains. Naproxen anti-inflammatory twice daily with food for the next week or so. Add hydrocodone if needed for pain. Bactrim antibiotic twice daily for 10 days for the kidney infection. Ondansetron if needed for nausea. Return if not improving well over the next couple of days and sooner if feeling worse or persistent vomiting or intractable pain or other concerns. Forms: Activity restrictions Discharge Date/Time: 12/02/18 05:19
[2018-12-02 02:34] LABS: ALBUMIN 4.7 g/dL (3.2-5.5); ALBUMIN/GLOBULIN RATIO 1.6 (1.0-2.2); BILIRUBIN,TOTAL 0.7 mg/dL (0.2-1.0); CALCIUM 9.6 mg/dL (8.5-10.3); CREATININE 0.9 mg/dL (0.4-1.0); TOTAL PROTEIN 7.7 g/dL (6.7-8.2)
[2018-12-02] MEDS ORDERED: cefTRIAXone 1 GM VIAL IVP STA (02:56)
[2018-12-02] MEDS ORDERED: ONDANSETRON 4 MG/2 ML VIAL IVP STA (02:56)
[2018-12-02] MEDS ORDERED: HYDROmorphone 1 MG/ML CARPUJECT IVP STA (02:56)
[2018-12-02] MEDS ORDERED: KETOROLAC 15 MG/ML VIAL IVP STA (02:56)
[2018-12-02] MEDS ORDERED: SODIUM CHLORIDE 0.9% 1,000 ML IV ONE (02:56)
[2018-12-02] MEDS ORDERED: HYDROcod/ACET 5/325 Prepack 4 PO STA (04:56)
[2018-12-02] MEDS ORDERED: ONDANSETRON ODT 4 MG Prepack 2 TL PRN (04:56)
--- NOTE | 2018-12-02 04:56 | CT Report ---
Reason: left flank pain and UTI Procedure Date: 12/02/2018 Accession Number: [id number] / [id number] Procedure: CT - Abdomen/Pelvis WO CPT Code: FULL RESULT: EXAM: CT ABDOMEN AND PELVIS (CT KUB) EXAM DATE: 12/02/2018 04:26 AM CLINICAL HISTORY: Left flank pain and urinary tract infection. COMPARISONS: None. TECHNIQUE: Routine axial helical CT imaging was performed through the abdomen and pelvis without IV contrast. Reconstructions: Coronal and sagittal. In accordance with CT protocol optimization, one or more of the following dose reduction techniques were utilized for this exam: automated exposure control, adjustment of mA and/or KV based on patient size, or use of iterative reconstructive technique. FINDINGS: Lung Bases: Unremarkable. Right Kidney/Ureter: No stones, hydronephrosis, or hydroureter. No perinephric fat stranding. Left Kidney/Ureter: No stones, hydronephrosis, or hydroureter. No perinephric fat stranding. Other Solid Organs: Noncontrast images of the solid organs are grossly unremarkable. Gallbladder/Bile Ducts: Unremarkable. Peritoneal Cavity: No free fluid, free air or steve adenopathy. Bowel is grossly unremarkable. Pelvic Organs: No bladder stones or wall thickening. Noncontrast images of the visualized pelvic organs are unremarkable. Vasculature: Unremarkable. Other: None. IMPRESSION: No urinary tract stones or obstruction. RADIA
[2018-12-02 05:08] VITALS: BP 112/58
== END 2018-12-02 05:19 | disposition home or self-care (01) ==
LOC: ED 00:13
DX: N10 Acute pyelonephritis (principal); F17.200 Nicotine dependence, unspecified, uncomplicated
CPT/HCPCS: 36415; 74176; 80053; 81001; 81025; 83690; 85025; 87077; 87086; 87181; 96361; 96374; 99284; J1170; 81003

== ENCOUNTER 2018-12-11 11:35 | Emergency (ER) | payer MEDICAID ==
[2018-12-11] MEDS ORDERED: KETOROLAC 60 MG/2 ML VIAL IM STA (12:27)
--- NOTE | 2018-12-11 12:29 | ED Physician Documentation ---
History of Present Illness - Stated complaint Stated Complaint: FACIAL PX - Chief complaint Chief Complaint: Heent - History obtained from History obtained from: Patient - History of Present Illness Timing: Chronic (28-year-old woman with right-sided trigeminal neuralgia, she saw a neurologist a couple of months ago who agreed with the diagnosis and recommended Botox. At the time she did not have insurance so she never got that. Carbamazepine was helpful, but not completely curative. She stopped it recently and now has increased pain. 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 : None HEENT: None Psych: None Musculoskeletal: None Derm: None - Past Surgical History Past Surgical History: Yes General: Appendectomy - Present Medications Home Medications: Ambulatory Orders Medication Instructions Recorded Confirmed Hydrocodone/Acetaminophen [[place] 1 each PO Q6H PRN #15 tablet 12/02/18 5-325 Tablet] Naproxen 375 mg PO BID #20 tablet 12/02/18 Ondansetron Odt [Zofran] 4 mg TL Q6H PRN #10 tablet 12/02/18 Sulfamethox/Trimeth 800/160 1 each PO BID #20 tablet 12/02/18 [Bactrim Ds 800/160] Carbamazepine 2 tab PO TID #120 tablet 12/11/18 Ketorolac [Toradol] 10 mg PO Q6H PRN #14 tablet 12/11/18 - Allergies Allergies/Adverse Reactions: Allergies Allergy/AdvReac Type Severity Reaction Status Date / Time Penicillins Allergy Unknown Verified 12/11/18 11:50 - Social History Does the pt smoke?: Yes Smoking Status: Current every day smoker Does the pt drink ETOH?: Yes Does the pt have substance abuse?: No - Immunizations Immunizations are current?: Yes - POLST Patient has POLST: No PD ED PE NORMAL - Vitals Vital signs reviewed: Yes - General General: Alert and oriented X 3, No acute distress - HEENT HEENT: PERRL, EOMI - Neuro Neuro: Alert and oriented X 3, Normal speech - Psych Psych: Normal mood, Normal affect Results - Vitals Vitals: Vital Signs - 24 hr 12/11/18 12/11/18 11:48 12:58 Temperature 36.7 C Heart Rate 93 88 Respiratory 14 16 Rate Blood Pressure 128/75 130/82 H O2 Saturation 97 98 Oxygen O2 Source Room air PD MEDICAL DECISION MAKING - ED course ED course: 28-year-old woman comes in with continued trigeminal neuralgia pain. She did want to restart carbamazepine after discussion. She also on some pain medica tions. For the last several months she is been here about twice a month and we discussed the ER policy of not giving narcotic pain medication more than about 4 times a year without extenuating circumstances and she is understanding. Departure - Departure Disposition: 01 Home, Self Care Clinical Impression: Trigeminal neuralgia of right side of face Condition: Good Record reviewed to determine appropriate education?: Yes Instructions: ED Neuralgia Trigeminal Prescriptions: Carbamazepine 2 tab PO TID #120 tablet Ketorolac [Toradol] 10 mg PO Q6H PRN #14 tablet PRN Reason: Pain Comments: The policy of this emergency department is to not give more than 3 prescriptions for narcotics or other controlled substances in any 1 year. You have already surpassed this benchmark and we cannot prescribe narcotics for you. I encourage you to follow up with your primary care physician or to establish care with a primary care physician for ongoing pain management. You are always welcome to seek emergency care here for this or new issues but there will likely be limitations in the prescription of narcotic pain medication. Call your doctor to arrange a follow-up appointment, make the next available appointment. In the interim, return anytime if worse or if new symptoms develop. Discharge Date/Time: 12/11/18 12:59
[2018-12-11 12:59] VITALS: BP 130/82
== END 2018-12-11 12:59 | disposition home or self-care (01) ==
LOC: ED 11:35
DX: G50.0 Trigeminal neuralgia (principal); F17.200 Nicotine dependence, unspecified, uncomplicated
CPT/HCPCS: 96372; 99283

== ENCOUNTER 2018-12-18 18:00 | Emergency (ER) | payer MEDICAID ==
[2018-12-18] MEDS ORDERED: KETOROLAC 30 MG/ML VIAL IM STA (19:40)
--- NOTE | 2018-12-18 19:43 | ED Physician Documentation ---
History of Present Illness - Stated complaint Stated Complaint: PAIN - LOWER RT SIDE OF FACE - Chief complaint Chief Complaint: General - Additonal information Additional information: This is a 28-year-old female with trgieminal neuralgia who presents with a flare of her pain on her right face. She states that this happens from time to time, and usually gets better with the Toradol shot. She says she has pain over the right side of her face which feels like her typical trigeminal neuralgia it is sharp/shooting, she denies any weakness or facial droop or other concerning symptoms. She is currently on carbamazepine. She would like the Toradol injection, and then she would like to be discharged. 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 : None HEENT: None Psych: None Musculoskeletal: None Derm: None Other Past Medical History: trigeminal neuralgia - Past Surgical History Past Surgical History: Yes General: Appendectomy - Present Medications Home Medications: Ambulatory Orders Medication Instructions Recorded Confirmed Hydrocodone/Acetaminophen [Blue 1 each PO Q6H PRN #15 tablet 12/02/18 5-325 Tablet] Naproxen 375 mg PO BID #20 tablet 12/02/18 Ondansetron Odt [Zofran] 4 mg TL Q6H PRN #10 tablet 12/02/18 Sulfamethox/Trimeth 800/160 1 each PO BID #20 tablet 12/02/18 [Bactrim Ds 800/160] Carbamazepine 2 tab PO TID #120 tablet 12/11/18 Ketorolac [Toradol] 10 mg PO Q6H PRN #14 tablet 12/11/18 - Allergies Allergies/Adverse Reactions: Allergies Allergy/AdvReac Type Severity Reaction Status Date / Time Penicillins Allergy Unknown Verified 12/11/18 11:50 - Social History Does the pt smoke?: Yes Smoking Status: Current every day smoker Does the pt drink ETOH?: Yes Does the pt have substance abuse?: No - Immunizations Immunizations are current?: Yes - POLST Patient has POLST: No PD ED PE NORMAL - Vitals Vital signs reviewed: Yes - General General: Alert and oriented X 3, No acute distress - HEENT HEENT: Atraumatic, Dentition benign, Other (Cavity in the back rear right molar no drainable abscess, no significant infection throughout the mouth.) - Neck Neck: Supple, no meningeal sign - Respiratory Respiratory: No respiratory distress - Neuro Neuro: Alert and oriented X 3, tire mechanic 2-12 intact - Psych Psych: Normal mood, Normal affect Results - Vitals Vitals: Vital Signs - 24 hr 12/18/18 12/18/18 12/18/18 18:14 19:47 20:07 Temperature 36.6 C 37.0 C Heart Rate 76 73 72 Respiratory 16 16 16 Rate Blood Pressure 121/79 125/76 O2 Saturation 99 99 99 Oxygen O2 Source Room air PD MEDICAL DECISION MAKING - ED course ED course: Patient presents with her classic trigeminal neuralgia symptoms, she has no neurologic deficits, no signs of infection. She was given Toradol per her wishes, return precautions and PCP follow-up were discussed, and patient was discharged in accordance with her wishes. Departure - Departure Disposition: ED Left Without Being Seen Clinical Impression: Trigeminal neuralgia of right side of face Condition: Good Comments: Please follow-up with your primary care provider on your trigeminal neuralgia. Return to the emergency department if you are developing any signs of infection such as redness or swelling on the side of your face,fever, or any other concerning symptoms Discharge Date/Time: 12/18/18 20:07
[2018-12-18 20:07] VITALS: BP 125/76
== END 2018-12-18 20:07 | disposition home or self-care (01) ==
LOC: ED 18:00
DX: G50.0 Trigeminal neuralgia (principal); K02.9 Dental caries, unspecified; F17.200 Nicotine dependence, unspecified, uncomplicated
CPT/HCPCS: 99282; 99283

== ENCOUNTER 2019-01-19 11:21 | Emergency (ER) | payer MEDICAID ==
[2019-01-19] MEDS ORDERED: KETOROLAC 30 MG/ML VIAL IM STA (12:09)
--- NOTE | 2019-01-19 12:09 | ED Physician Documentation ---
History of Present Illness - Stated complaint Stated Complaint: FACIAL PX - Chief complaint Chief Complaint: Heent - Additonal information Additional information: This is a 28-year-old female with history of trigeminal neuralgia who presents with an exacerbation of her typical trigeminal neuralgia pain. She states it has been going on for the last 2 weeks, and radiates from the out towards her cheek or jaw. She thinks the colder temperatures exacerbate her pain. She has seen a neurologist in the past, she is already on carbamazepine. She gets relief with Toradol and is hoping to Toradol injection today. 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 HEENT: None Psych: None Musculoskeletal: None Derm: None - Past Surgical History Past Surgical History: Yes General: Appendectomy - Present Medications Home Medications: Ambulatory Orders Medication Instructions Recorded Confirmed Hydrocodone/Acetaminophen [[place] 1 each PO Q6H PRN #15 tablet 12/02/18 5-325 Tablet] Naproxen 375 mg PO BID #20 tablet 12/02/18 Ondansetron Odt [Zofran] 4 mg TL Q6H PRN #10 tablet 12/02/18 Sulfamethox/Trimeth 800/160 1 each PO BID #20 tablet 12/02/18 [Bactrim Ds 800/160] Carbamazepine 2 tab PO TID #120 tablet 12/11/18 Ketorolac [Toradol] 10 mg PO Q6H PRN #14 tablet 12/11/18 - Allergies Allergies/Adverse Reactions: Allergies Allergy/AdvReac Type Severity Reaction Status Date / Time Penicillins Allergy Mild Unknown Verified 01/19/19 11:46 - Social History Does the pt smoke?: Yes Smoking Status: Current every day smoker Does the pt drink ETOH?: Yes Does the pt have substance abuse?: No - Immunizations Immunizations are current?: Yes - POLST Patient has POLST: No PD ED PE NORMAL - Vitals Vital signs reviewed: Yes - General General: Alert and oriented X 3 - HEENT HEENT: Atraumatic, Pharynx benign, Other (Mild decay in the back right molar, no abscess, no pain to percussion on this tooth. Remainder of the teeth appear unremarkable) - Neck Neck: Supple, no meningeal sign - Respiratory Respiratory: No respiratory distress - Neuro Neuro: Alert and oriented X 3, java j2ee lead 2-12 intact, Normal speech Results - Vitals Vitals: Vital Signs - 24 hr 01/19/19 11:44 Temperature 2.8 C L Heart Rate 77 Respiratory 20 Rate Blood Pressure 125/52 L O2 Saturation 100 Oxygen O2 Source Room air PD MEDICAL DECISION MAKING - ED course ED course: Patient presents with her typical trigeminal neuralgia pain requesting a Toradol shot. I do not see signs of infection or any other concerning/emergent cause of her pain. I ordered a Toradol injection as per patient's wishes and discussed return precautions as well as PCP and dental follow-up as she does appear to have some mild dental decay in her back right molar. Patient agreed this plan and was discharged home Departure - Departure Disposition: 01 Home, Self Care Clinical Impression: Trigeminal neuralgia of right side of face Condition: Good Follow-Up: Your,PCP and neurology [Other] Comments: You were seen today for pain which is consistent with your trigeminal neuralgia. Please follow-up with a neurologist as soon as possible to discuss further treatment options of your trigeminal neuralgia. Please also follow-up with dentist as you do have some signs of possible dental decay in your back right molar. If you developing signs of infection or other concerning symptoms return to the ED.
[2019-01-19 12:32] VITALS: BP 123/79
== END 2019-01-19 12:29 | disposition home or self-care (01) ==
LOC: ED 11:21
DX: G50.0 Trigeminal neuralgia (principal); K02.9 Dental caries, unspecified; F17.200 Nicotine dependence, unspecified, uncomplicated
CPT/HCPCS: 96372; 99283; 99284

== ENCOUNTER 2019-02-08 02:18 | Emergency (ER) | payer MEDICAID ==
--- NOTE | 2019-02-08 02:24 | ED Physician Documentation ---
History of Present Illness - Stated complaint Stated Complaint: FACE PX - Chief complaint Chief Complaint: General - Additonal information Additional information: This is a 28-year-old female who is known to me she has a history of trigeminal neuralgia for which he takes carbamazepine. She presents tonight because she has had a flareup of her trigeminal neuralgia. It is her typical pain on the right side of her face, The pain is typically mild in severity during the day, but tonight it became moderate to severe. She denies any dental pain she seen a dentist in her x-rays looked okay. She denies any fever or facial swelling. 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 : None HEENT: None Psych: None Musculoskeletal: None Derm: None - Past Surgical History Past Surgical History: Yes General: Appendectomy - Present Medications Home Medications: Ambulatory Orders Medication Instructions Recorded Confirmed Naproxen 375 mg PO BID #20 tablet 12/02/18 02/08/19 carBAMazepine [Tegretol Xr] 1,200 mg PO DAILY 02/08/19 02/08/19 hydrOXYzine pamoate [Hydroxyzine 25 - 50 mg PO DAILY PM PRN #15 02/08/19 Pamoate] capsule - Allergies Allergies/Adverse Reactions: Allergies Allergy/AdvReac Type Severity Reaction Status Date / Time Penicillins Allergy Mild Unknown Verified 01/19/19 11:46 - Social History Does the pt smoke?: Yes Smoking Status: Current every day smoker Does the pt drink ETOH?: Yes Does the pt have substance abuse?: No - Immunizations Immunizations are current?: Yes - POLST Patient has POLST: No PD ED PE NORMAL - General General: Alert and oriented X 3, No acute distress - HEENT HEENT: Atraumatic, PERRL, EOMI, Pharynx benign, Dentition benign - Neck Neck: Supple, no meningeal sign - Cardiac Cardiac: Other (Well-perfused skin) - Respiratory Respiratory: No respiratory distress - Neuro Neuro: Alert and oriented X 3, drafter civil 2-12 intact, Normal speech, Other (No focal deficit) Results - Vitals Vitals: Vital Signs - 24 hr 02/08/19 02:20 Temperature 37.7 C H Heart Rate 81 Respiratory 16 Rate Blood Pressure 125/70 O2 Saturation 100 Oxygen O2 Source Room air PD MEDICAL DECISION MAKING - ED course ED course: Patient has a well-established history of trigeminal neuralgia and she presents with a flare of her typical trigeminal neuralgia pain. No signs of infection nor new/emergent intracranial pathology. She is neurologically intact. I gave her 1 dose of oxycodone here, and also a dose of Toradol. She states that when she has flares of her pain she has difficulty sleeping, I did prescribe her her prescription of hydroxyzine that she can try for the insomnia, I discussed the risks and side effects of this medication with her. I also discussed that she should continue to try to reestablish with a neurologist, and to follow-up with a primary care provider. I reviewed return precautions with the patient, and she was discharged home Departure - Departure Disposition: 01 Home, Self Care Clinical Impression: Trigeminal neuralgia Condition: Good Follow-Up: Your,PCP [Other] Prescriptions: hydrOXYzine pamoate [Hydroxyzine Pamoate] 25 - 50 mg PO DAILY PM PRN #15 capsule PRN Reason: Insomnia Comments: You were seen today for trigeminal neuralgia pain. Please continue to try to establish with a neurologist. If you develop signs of infection such as swelling or redness in your face, or fever, return to the emergency department. You may try the hydroxyzine for sleep, do not combine it with other potentially sedating medications.
[2019-02-08] MEDS ORDERED: oxyCODONE 5 MG TABLET PO STA (02:38)
[2019-02-08] MEDS ORDERED: hydrOXYzine PAMOATE 25 MG CAPSULE PO STA (02:38)
[2019-02-08] MEDS ORDERED: KETOROLAC 30 MG/ML VIAL IM STA (02:38)
[2019-02-08 03:23] VITALS: BP 119/68
== END 2019-02-08 03:10 | disposition home or self-care (01) ==
LOC: ED 02:18
DX: G50.0 Trigeminal neuralgia (principal); G47.00 Insomnia, unspecified; F17.200 Nicotine dependence, unspecified, uncomplicated
CPT/HCPCS: 96372; 99283; 99284

== ENCOUNTER 2019-02-08 07:29 | Emergency (ER) | payer MEDICAID ==
[2019-02-08] MEDS ORDERED: KETOROLAC 60 MG/2 ML VIAL IM STA (09:09)
[2019-02-08] MEDS ORDERED: CHERRY SYRUP 10 ML UDC PO ONE (09:09)
[2019-02-08] MEDS ORDERED: DEXAMETHASONE 10 MG/ML VIAL PO STA (09:09)
--- NOTE | 2019-02-08 09:12 | ED Physician Documentation ---
History of Present Illness - Stated complaint Stated Complaint: FACIAL PX - Chief complaint Chief Complaint: General - History obtained from History obtained from: Patient - History of Present Illness Timing: Today - Additonal information Additional information: 28-year-old female with a history of trigeminal neuralgia has had an increase in her pain despite being on her usual dose of 1200 mg of carbamazepine. She was seen in the emergency department last night given a shot of Toradol and had some improvement this has now worn off and she is back in the emergency department in tears with pain. She states that she has had episodes like this previously she has a lot of pressure in the side of her face. She does not have any specific tooth that is bothering her right now or any specific inflammation to her face. She does have a cough and congestion which she has had for about 4 days. She denies any ear pain she denies any vomiting. Review of Systems Constitutional: denies: Fever Eyes: denies: Decreased vision Ears: denies: Ear pain Nose: reports: Congestion. denies: Rhinorrhea / runny nose Throat: denies: Sore throat Cardiac: denies: Chest pain / pressure, Palpitations Respiratory: reports: Cough. denies: Dyspnea GI: denies: Nausea, Vomiting : denies: Dysuria, Frequency Skin: denies: Rash Musculoskeletal: denies: Neck pain, Back pain, Extremity pain Neurologic: reports: Other (facial pain). 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 HEENT: None Psych: None Musculoskeletal: None Derm: None - Past Surgical History Past Surgical History: Yes General: Appendectomy - Present Medications Home Medications: Ambulatory Orders Medication Instructions Recorded Confirmed Naproxen 375 mg PO BID #20 tablet 12/02/18 02/08/19 Oxycodone HCl/Acetaminophen 1 - 2 each PO Q6H PRN #14 tablet 02/08/19 [Percocet 5-325 mg Tablet] carBAMazepine [Tegretol Xr] 1,200 mg PO DAILY 02/08/19 02/08/19 hydrOXYzine pamoate [Hydroxyzine 25 - 50 mg PO DAILY PM PRN #15 02/08/19 Pamoate] capsule - Allergies Allergies/Adverse Reactions: Allergies Allergy/AdvReac Type Severity Reaction Status Date / Time Penicillins Allergy Mild Unknown Verified 02/08/19 07:47 - Social History Does the pt smoke?: Yes Smoking Status: Current every day smoker Does the pt drink ETOH?: Yes Does the pt have substance abuse?: No - Immunizations Immunizations are current?: Yes - POLST Patient has POLST: No PD ED PE NORMAL - Vitals Vital signs reviewed: Yes (normal ) - General General: Alert and oriented X 3, Well developed/nourished, Other (28-year-old female in tears appears to be in pain.) - HEENT HEENT: Atraumatic, PERRL, EOMI, Ears normal, Moist mucous membranes, Pharynx benign, Dentition benign - Neck Neck: Supple, no meningeal sign, No bony TTP - Cardiac Cardiac: RRR, No murmur - Respiratory Respiratory: No respiratory distress, Clear bilaterally - Back Back: No CVA TTP, No spinal TTP - Derm Derm: Normal color, Warm and dry, No rash - Extremities Extremities: No deformity, No tenderness to palpate, Normal ROM s pain, No edema, No calf tenderness / cord - Neuro Neuro: Alert and oriented X 3, technical service rep 2-12 intact, No motor deficit, No sensory deficit, Normal speech Eye Opening: Spontaneous Motor: Obeys Commands Verbal: Oriented GCS Score: 15 - Psych Psych: Other (Mood is defeated than the affect is in tears.) Results - Vitals Vitals: Vital Signs - 24 hr 02/08/19 07:45 Temperature 36.8 C Heart Rate 97 Respiratory 20 Rate Blood Pressure 117/79 O2 Saturation 99 Oxygen O2 Source Room air PD MEDICAL DECISION MAKING - ED course Complexity details: reviewed old records, reviewed results, re-evaluated patient, considered differential, d/w patient ED course: 28-year-old female with trigeminal neuralgia has a spike in her symptoms and she comes to the emergency department for the second time today. She has had luck with Toradol previously of the Toradol has no now worn off and we are administering a second dose of Toradol were giving her a dose of dexamethasone as well and we will place her on a short course of narcotic for acute pain. Departure - Departure Disposition: 01 Home, Self Care Clinical Impression: Trigeminal neuralgia of right side of face Condition: Stable Instructions: ED Neuralgia Trigeminal Follow-Up: Your, doctor [Other] Prescriptions: Oxycodone HCl/Acetaminophen [Percocet 5-325 mg Tablet] 1 - 2 each PO Q6H PRN #14 tablet PRN Reason: pain
[2019-02-08 09:28] VITALS: BP 116/76
== END 2019-02-08 09:27 | disposition home or self-care (01) ==
LOC: ED 07:29
DX: G50.0 Trigeminal neuralgia (principal); G47.00 Insomnia, unspecified; F17.200 Nicotine dependence, unspecified, uncomplicated
CPT/HCPCS: 96372; 99283; 99284; A9270

== ENCOUNTER 2019-02-15 10:28 | Emergency (ER) | payer MEDICAID ==
[2019-02-15] MEDS ORDERED: KETOROLAC 60 MG/2 ML VIAL IM STA (12:14)
--- NOTE | 2019-02-15 12:16 | ED Physician Documentation ---
PD HPI HEENT - Stated complaint Stated Complaint: FACIAL PAIN - Chief complaint Chief Complaint: Heent - History obtained from History obtained from: Patient - History of Present Illness Timing - onset: Other (She has chronic pain from trigeminal neuralgia and frequents the emergency department for same, this is her 17th ED visit in the last 12 months. She had been cut off of narcotics by previous providers however was given a prescription for narcotics 2 visits ago. Subsequent to that she was seen this morning and given a Toradol shot that was ineffective. She has no new or acute complaints. 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 : None HEENT: None Psych: None Musculoskeletal: None Derm: None - Past Surgical History Past Surgical History: Yes General: Appendectomy - Present Medications Home Medications: Ambulatory Orders Medication Instructions Recorded Confirmed carBAMazepine [TEGretol] 1,200 mg PO DAILY 02/15/19 02/15/19 - Allergies Allergies/Adverse Reactions: Allergies Allergy/AdvReac Type Severity Reaction Status Date / Time Penicillins Allergy Mild Unknown Verified 02/15/19 08:43 - Social History Does the pt smoke?: Yes Smoking Status: Current every day smoker Does the pt drink ETOH?: Yes Does the pt have substance abuse?: No - Immunizations Immunizations are current?: Yes - POLST Patient has POLST: No PD ED PE NORMAL - Vitals Vital signs reviewed: Yes - General General: Alert and oriented X 3, No acute distress - HEENT HEENT: PERRL, EOMI, Ears normal, Pharynx benign - Neck Neck: Supple, no meningeal sign, No bony TTP - Neuro Neuro: Alert and oriented X 3, Normal speech Results - Vitals Vitals: Vital Signs - 24 hr 02/15/19 02/15/19 10:58 12:25 Temperature 36.8 C 36.9 C Heart Rate 78 71 Respiratory 18 18 Rate Blood Pressure 136/83 H 129/66 O2 Saturation 100 100 Oxygen O2 Source Room air PD MEDICAL DECISION MAKING - ED course ED course: 28-year-old woman with chronic facial pain due to trigeminal neuralgia. We discussed treatments options in the emergency department but made it clear that we could not continue to give her narcotics for this chronic issue. Departure - Departure Disposition: 01 Home, Self Care Clinical Impression: Trigeminal neuralgia of right side of face Condition: Good Record reviewed to determine appropriate education?: Yes Instructions: ED Chronic Pain Management Comments: As discussed, we cannot continue to give you narcotic pain medications for this chronic issue, outpatient follow-up is necessary for further evaluation and treatment. Return anytime for emergencies. Discharge Date/Time: 02/15/19 12:26
[2019-02-15 12:26] VITALS: BP 129/66
== END 2019-02-15 12:26 | disposition home or self-care (01) ==
LOC: ED 10:28
DX: G50.0 Trigeminal neuralgia (principal); H69.81 Other specified disorders of Eustachian tube, right ear; F17.200 Nicotine dependence, unspecified, uncomplicated
CPT/HCPCS: 96372; 99281; 99284

== ENCOUNTER 2019-02-16 06:06 | Emergency (ER) | payer MEDICAID ==
[2019-02-16 06:12] VITALS: BP 141/93
--- NOTE | 2019-02-16 06:15 | ED Physician Documentation ---
PD HPI HEENT - Stated complaint Stated Complaint: MOUTH/FACIAL PAIN - Chief complaint Chief Complaint: Heent - History obtained from History obtained from: Patient - History of Present Illness Timing - onset: How many days ago Timing - duration: Days (She has had several days of worsened trigeminal neuralgia pain. This is been a recurring and chronic problem with flareups. S he resumed carbamazepine a month or 2 ago having done well without pain for a while. She states she still having worse pain at times despite that. She has not had improvement with NSAIDs or steroids. She had gotten a Toradol injection in the emergency department with temporary but only moderate improvement. She was seen again in the emergency department and had inferior alveolar mandibular nerve block with improvement in pain in the mandible area but not in the cheek or near the ear.) Timing - details: Gradual onset, Waxing and waning Location: Other (right cheek and mandible) Worsens: Temperatures, Other (chewing, and mouth movement) Associated symptoms: No: Fever, Congestion, Swollen nodes, Facial swelling Similar symptoms before: Diagnosis (trigeminal neuralgia) Recently seen: Not recently seen Review of Systems Constitutional: denies: Fever, Chills Nose: denies: Rhinorrhea / runny nose, Congestion Throat: denies: Sore throat Respiratory: denies: Cough GI: denies: Nausea, Vomiting, Diarrhea Skin: denies: Rash, Lesions Neurologic: denies: Focal weakness, Numbness PD PAST MEDICAL HISTORY - Past Medical History Cardiovascular: None Respiratory: None Neuro: Other Endocrine/Autoimmune: None GI: None 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 : None HEENT: None Psych: None Musculoskeletal: None Derm: None - Past Surgical History Past Surgical History: Yes General: Appendectomy - Present Medications Home Medications: Ambulatory Orders Medication Instructions Recorded Confirmed carBAMazepine [TEGretol] 1,200 mg PO DAILY 02/15/19 02/15/19 Baclofen 5 mg PO TID #30 tablet 02/16/19 - Allergies Allergies/Adverse Reactions: Allergies Allergy/AdvReac Type Severity Reaction Status Date / Time Penicillins Allergy Mild Unknown Verified 02/15/19 08:43 - Social History Does the pt smoke?: Yes Smoking Status: Current every day smoker Does the pt drink ETOH?: Yes Does the pt have substance abuse?: No - Immunizations Immunizations are current?: Yes - POLST Patient has POLST: No PD ED PE NORMAL - Vitals Vital signs reviewed: Yes - General General: Alert and oriented X 3, Well developed/nourished - HEENT HEENT: Moist mucous membranes, Pharynx benign - Neck Neck: Supple, no meningeal sign, No adenopathy - Derm Derm: Normal color, Warm and dry - Neuro Neuro: Alert and oriented X 3, administrative support assistant 2-12 intact, No motor deficit, No sensory deficit Results - Vitals Vitals: Vital Signs - 24 hr 02/16/19 06:09 Temperature 36.8 C Heart Rate 69 Respiratory 18 Rate Blood Pressure 141/93 H O2 Saturation 98 Oxygen O2 Source Room air PD MEDICAL DECISION MAKING - ED course Complexity details: reviewed old records (Recent ER charts have informed the patient that we can only do narcotics for chronic pain conditions so many times per year and that has been fulfilled. She is understanding of that. However the policy does not limit us on treatment in the ER and I did give a dose of IM medications here. She had had a inferior alveolar mandibular nerve block with numbness in the lower jaw that is still feeling numb and has diminished pain in that area. However she still has pain at the cheek and towards the ear suggesting involvement of V2 as well as V1. It would be difficult to block V2 at its origin.), considered differential, d/w patient ED course: I referenced up-to-date and it did suggest abducting the carbamazepine with baclofen and was effective for and 7 out of 10 patients in 1 study. Departure - Departure Disposition: 01 Home, Self Care Clinical Impression: Trigeminal neuralgia, Chronic facial pain Condition: Stable Prescriptions: Baclofen 5 mg PO TID #30 tablet Comments: Continue your carbamazepine. To that add baclofen 5 mg 3 times a day. The reference up-to-date said this was a effective adjunct to the carbamazepine in several studies. Discharge Date/Time: 02/16/19 06:59
[2019-02-16] MEDS ORDERED: CHERRY SYRUP 10 ML UDC PO ONE (06:38)
[2019-02-16] MEDS ORDERED: DEXAMETHASONE 10 MG/ML VIAL PO STA (06:38)
[2019-02-16] MEDS ORDERED: HYDROmorphone 2 MG/ML VIAL IM STA (06:38)
[2019-02-16] MEDS ORDERED: BACLOFEN 10 MG TABLET PO STA (06:38)
== END 2019-02-16 06:59 | disposition home or self-care (01) ==
LOC: ED 06:06
DX: G50.0 Trigeminal neuralgia (principal); G89.29 Other chronic pain; F17.200 Nicotine dependence, unspecified, uncomplicated
CPT/HCPCS: 96372; 99283; 99284; A9270; J1170

== ENCOUNTER 2019-05-25 12:38 | Emergency (ER) | payer MEDICAID ==
[2019-05-25 12:47] VITALS: BP 124/86
--- NOTE | 2019-05-25 12:52 | ED Physician Documentation ---
PD HPI HEENT - Stated complaint Stated Complaint: FACIAL PX - Chief complaint Chief Complaint: General - History obtained from History obtained from: Patient - History of Present Illness Timing - onset: How many days ago (4) Timing - duration: Days (4) Timing - details: Gradual onset (The patient has had pain in the right jaw for over a year due to diagnosed trigeminal neuralgia. She is on Tegretol and and had the dose increased a little bit a month ago with a flareup. She uses pain medicine episodically when she gets worsening pain. She was unable to get a refill through her primary care until later this week due to changes in the office visit pattern with the current pandemic. She had been seen her neurologist but needed to change neurology because of an insurance change. She has an appointment upcoming in another month and a half. Her previous neurologist was going to try Botox but again had not been able to do that because her insurance changed.) Location: Other (She has pain on the right side of the face consistent with her prior trigeminal neuralgia. She had had a tooth broke a couple weeks ago but does not feel that there is any swelling located in that area. 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 : None HEENT: None Psych: None Musculoskeletal: None Derm: None - Past Surgical History Past Surgical History: Yes General: Appendectomy - Present Medications Home Medications: Ambulatory Orders Medication Instructions Recorded Confirmed carBAMazepine [TEGretol] 1,200 mg PO DAILY 02/15/19 02/15/19 Baclofen 5 mg PO TID #30 tablet 02/16/19 Hydrocodone/Acetaminophen [[place] 1 each PO TID PRN #15 tablet 05/25/19 5-325 Tablet] - Allergies Allergies/Adverse Reactions: Allergies Allergy/AdvReac Type Severity Reaction Status Date / Time Penicillins Allergy Mild Unknown Verified 05/25/19 12:47 - Social History Does the pt smoke?: Yes Smoking Status: Current every day smoker Does the pt drink ETOH?: Yes Does the pt have substance abuse?: No - Immunizations Immunizations are current?: Yes - POLST Patient has POLST: No PD ED PE NORMAL - Vitals Vital signs reviewed: Yes - General General: Alert and oriented X 3, No acute distress, Well developed/nourished - HEENT HEENT: No: Dentition benign (Her teeth are mostly fine. Her right lower back molar has a cavity with the partial decay of the enamel on the lingual side. There is no redness nor swelling of the gum.) - Neck Neck: Supple, no meningeal sign, No adenopathy - Cardiac Cardiac: RRR, No murmur - Respiratory Respiratory: Clear bilaterally - Derm Derm: Normal color, Warm and dry, No rash - Neuro Neuro: No motor deficit, No sensory deficit Results - Vitals Vitals: Vital Signs - 24 hr 05/25/19 12:44 Temperature 36.5 C Heart Rate 78 Respiratory 12 Rate Blood Pressure 124/86 H O2 Saturation 98 Oxygen O2 Source Room air PD MEDICAL DECISION MAKING - ED course Complexity details: considered differential (She has a diagnosis of trigeminal neuralgia and is on medication for that and has episodic flareups. She has occasional visits to the ER but has not been here for a while. Her and he shows consistent prescriptions from her primary care provider and not other sources regularly. At this point a low provide a short prescription for her until her primary care can resume usual prescriptions later this week.), d/w patient Departure - Departure Disposition: 01 Home, Self Care Clinical Impression: Acute facial pain, Trigeminal neuralgia Condition: Stable Record reviewed to determine appropriate education?: Yes Instructions: ED Neuralgia Trigeminal Follow-Up: BRIANNA HERNANDEZ DO [Primary Care Provider] - Prescriptions: Hydrocodone/Acetaminophen [[place] 5-325 Tablet] 1 each PO TID PRN #15 tablet PRN Reason: Pain Comments: Continue usual medications. Add the hydrocodone 3 times a day as needed for pain. Follow-up with your primary care and neurology. Discharge Date/Time: 05/25/19 13:22
[2019-05-25] MEDS ORDERED: HYDROcod/ACETAM 7.5 MG/325 MG TABLET PO STA (13:14)
== END 2019-05-25 13:22 | disposition home or self-care (01) ==
LOC: ED 12:38
DX: G50.0 Trigeminal neuralgia (principal); F17.200 Nicotine dependence, unspecified, uncomplicated
CPT/HCPCS: 99283; 99284

== ENCOUNTER 2019-05-25 18:37 | Emergency (ER) | payer MEDICAID ==
[2019-05-25 18:43] VITALS: BP 131/89
[2019-05-25] MEDS ORDERED: HYDROcod/ACETAM 5/325 MG TABLET PO STA (18:51)
[2019-05-25] MEDS ORDERED: KETOROLAC 60 MG/2 ML VIAL IM STA (18:51)
--- NOTE | 2019-05-25 18:57 | ED Physician Documentation ---
History of Present Illness - Stated complaint Stated Complaint: FACIAL PAIN - Chief complaint Chief Complaint: General - History obtained from History obtained from: Patient - History of Present Illness Timing: Chronic Pain level max: 10 Pain level now: 10 - Additonal information Additional information: 29-year-old female with Chronic trigeminal neuralgia. She was seen here earlier today and a prescription written in. She states that the pharmacy would not fill this. Came back as she is still having pain. She states she was unable to get a hold of her doctor today. Nothing makes it better or worse. No fever. No trauma. She is not , breast-feeding or trying to become . 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 HEENT: None Psych: None Musculoskeletal: None Derm: None - Past Surgical History Past Surgical History: Yes General: Appendectomy - Present Medications Home Medications: Ambulatory Orders Medication Instructions Recorded Confirmed carBAMazepine [TEGretol] 1,200 mg PO DAILY 02/15/19 02/15/19 Baclofen 5 mg PO TID #30 tablet 02/16/19 Hydrocodone/Acetaminophen [[place] 1 each PO TID PRN #15 tablet 05/25/19 5-325 Tablet] - Allergies Allergies/Adverse Reactions: Allergies Allergy/AdvReac Type Severity Reaction Status Date / Time Penicillins Allergy Mild Unknown Verified 05/25/19 18:43 - Social History Does the pt smoke?: Yes Smoking Status: Current every day smoker Does the pt drink ETOH?: Yes Does the pt have substance abuse?: No - Immunizations Immunizations are current?: Yes - POLST Patient has POLST: No PD ED PE NORMAL - Vitals Vital signs reviewed: Yes - General General: Alert and oriented X 3, No acute distress - HEENT HEENT: Moist mucous membranes - Neck Neck: Supple, no meningeal sign - Derm Derm: Warm and dry - Neuro Neuro: Alert and oriented X 3 Results - Vitals Vitals: Vital Signs - 24 hr 05/25/19 18:41 Temperature 36.3 C L Heart Rate 60 Respiratory 16 Rate Blood Pressure 131/89 H O2 Saturation 98 Oxygen O2 Source Room air PD MEDICAL DECISION MAKING - ED course Complexity details: reviewed old records, considered differential, d/w patient ED course: Patient with trigeminal neuralgia. Given a dose of Toradol and hydrocodone here. Recommend she contact her doctor to help with her insurance issues. Patient counseled regarding signs and symptoms for which I believe and urgent re-evaluation would be necessary. Patient with good understanding of and agreement to plan and is comfortable going home at this time This document was made in part using voice recognition software. While efforts are made to proofread this document, sound alike and grammatical errors may occur. Departure - Departure Disposition: 01 Home, Self Care Clinical Impression: Trigeminal neuralgia of right side of face Condition: Good Instructions: ED Neuralgia Trigeminal Follow-Up: BRIANNA HERNANDEZ, [Primary Care Provider] - Within 1 week Comments: Return if you worsen. Follow-up with your doctor for further care.
== END 2019-05-25 19:13 | disposition home or self-care (01) ==
LOC: ED 18:37
DX: G50.0 Trigeminal neuralgia (principal); F17.200 Nicotine dependence, unspecified, uncomplicated
CPT/HCPCS: 96372; 99283; 99284; A9270

== ENCOUNTER 2019-08-10 18:26 | Emergency (ER) | payer MEDICAID ==
[2019-08-10 18:32] VITALS: BP 142/70
[2019-08-10] MEDS ORDERED: KETOROLAC 60 MG/2 ML VIAL IM STA (18:52)
--- NOTE | 2019-08-10 18:54 | ED Physician Documentation ---
History of Present Illness - Stated complaint Stated Complaint: FACIAL PAIN RT SIDE - Chief complaint Chief Complaint: Heent - History obtained from History obtained from: Patient (29-year-old woman with chronic recurrent trigeminal neuralgia who is a frequent emergency department visitor for same. 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 : None HEENT: None Psych: None Musculoskeletal: None Derm: None - Past Surgical History Past Surgical History: Yes General: Appendectomy - Present Medications Home Medications: Ambulatory Orders Medication Instructions Recorded Confirmed carBAMazepine [TEGretol] 1,200 mg PO DAILY 02/15/19 02/15/19 Baclofen 5 mg PO TID #30 tablet 02/16/19 Hydrocodone/Acetaminophen [[place] 1 each PO TID PRN #15 tablet 05/25/19 5-325 Tablet] - Allergies Allergies/Adverse Reactions: Allergies Allergy/AdvReac Type Severity Reaction Status Date / Time Penicillins Allergy Mild Unknown Verified 08/10/19 18:29 - Social History Does the pt smoke?: Yes Smoking Status: Current every day smoker Does the pt drink ETOH?: Yes Does the pt have substance abuse?: No - Immunizations Immunizations are current?: Yes - POLST Patient has POLST: No PD ED PE NORMAL - Vitals Vital signs reviewed: Yes - General General: Alert and oriented X 3, Other (tearful) - Neuro Neuro: Alert and oriented X 3, Normal speech Results - Vitals Vitals: Vital Signs - 24 hr 08/10/19 18:29 Heart Rate 74 Respiratory 16 Rate Blood Pressure 142/70 H O2 Saturation 100 Oxygen O2 Source Room air PD MEDICAL DECISION MAKING - ED course ED course: 29-year-old woman with chronic recurrent pain from trigeminal neuralgia presents with an exacerbation of same. I discussed with her that I am not willing or able to give her further narcotics and she had been told this before. She ran out of her medications early. She states she does get some relief from a shot of Toradol and this was administered. Departure - Departure Disposition: 01 Home, Self Care Clinical Impression: Trigeminal neuralgia of right side of face Condition: Good Record reviewed to determine appropriate education?: Yes Instructions: ED Chronic Pain Management Comments: As discussed it is not appropriate for us to give you Narcotics for this chronic issue. Follow-up with your primary care physician.
== END 2019-08-10 18:56 | disposition home or self-care (01) ==
LOC: ED 18:26
DX: G50.0 Trigeminal neuralgia (principal); F17.200 Nicotine dependence, unspecified, uncomplicated
CPT/HCPCS: 99283

== ENCOUNTER 2019-09-22 20:34 | Emergency (ER) | payer MEDICAID ==
[2019-09-22 20:40] VITALS: BP 121/68
[2019-09-22 20:55] LABS: BILIRUBIN,URINE NEGATIVE (NEGATIVE); GLUCOSE, URINE (UA) NEGATIVE (NEGATIVE); KETONES,URINE (UA) NEGATIVE (NEGATIVE); LEUKOCYTE ESTERASE, URINE NEGATIVE (NEGATIVE); NITRITE,URINE NEGATIVE (NEGATIVE); OCCULT BLOOD,URINE NEGATIVE (NEGATIVE); PROTEIN,URINE NEGATIVE (NEGATIVE); UROBILINOGEN,URINE 0.2 (NORMAL) E.U./dL (NORMAL)
[2019-09-22 20:56] LABS: CLARITY,URINE CLEAR (CLEAR)
--- NOTE | 2019-09-22 21:56 | ED Physician Documentation ---
PD HPI NVD - Stated complaint Stated Complaint: LT SIDE PX, N/V - Chief complaint Chief Complaint: Abd Pain - History obtained from History obtained from: Patient - History of Present Illness Timing - onset: Yesterday Timing - details: Gradual onset Pain level now: 8 Associated symptoms: No: Fever Improved by: Other (nothing) Worsened by: Other (no exacerbating factors) - Additonal information Additional information: th [facility] ED visit since August 2017; 16 of these have been over past 12 months, also 1 visit each to [facility] ED and ED. c/o left flank pain since yesterday with nausea, vomiting. she also c/o restless legs and requests medication to treat this, as well. Review of Systems Constitutional: reports: Reviewed and negative Cardiac: reports: Reviewed and negative Respiratory: reports: Reviewed and negative GI: reports: Abdominal Pain, Nausea, Vomiting. 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 : None HEENT: None Psych: None Musculoskeletal: Other Derm: None Other Past Medical History: RSL, neuralgia, - Past Surgical History Past Surgical History: Yes General: Appendectomy - Present Medications Home Medications: Ambulatory Orders Medication Instructions Recorded Confirmed carBAMazepine [TEGretol] 1,200 mg PO DAILY 02/15/19 02/15/19 Baclofen 5 mg PO TID #30 tablet 02/16/19 Hydrocodone/Acetaminophen [[place] 1 each PO TID PRN #15 tablet 05/25/19 5-325 Tablet] - Allergies Allergies/Adverse Reactions: Allergies Allergy/AdvReac Type Severity Reaction Status Date / Time Penicillins Allergy Mild Unknown Verified 09/22/19 20:38 - Social History Does the pt smoke?: Yes Smoking Status: Current every day smoker Does the pt drink ETOH?: Yes Does the pt have substance abuse?: No - Immunizations Immunizations are current?: Yes - POLST Patient has POLST: No PD ED PE NORMAL - Vitals Vital signs reviewed: Yes - General General: Alert and oriented X 3, No acute distress, Well developed/nourished, Other (resting in NAD when I enter room) - HEENT HEENT: Moist mucous membranes - Neck Neck: Supple, no meningeal sign - Cardiac Cardiac: RRR, No murmur - Respiratory Respiratory: No respiratory distress, Clear bilaterally - Abdomen Abdomen: Soft, Non tender - Derm Derm: Normal color, Warm and dry Results - Vitals Vitals: Oxygen O2 Source Room air - Labs Labs: Laboratory Tests 09/22/19 20:41 Urine Color YELLOW Urine Clarity CLEAR Urine pH 7.0 Ur Specific [place] <=1.005 Urine Protein NEGATIVE Urine Glucose (UA) NEGATIVE Urine Ketones NEGATIVE Urine Occult Blood NEGATIVE Urine Nitrite NEGATIVE Urine Bilirubin NEGATIVE Urine Urobilinogen 0.2 (NORMAL) Ur Leukocyte Esterase NEGATIVE Ur Microscopic Review NOT INDICATED Urine Culture Comments NOT INDICATED PD MEDICAL DECISION MAKING - ED course Complexity details: reviewed old records, considered differential, d/w patient ED course: we discussed my recommendations, which are IV, blood tests, urinalysis, and zofran, toradol, and fluids through IV. She asked again for something to treat restless legs; I asked if she usually takes something for this, and she takes mirapex, and thus I said I would see if this is a medication we have available in the ED. I asked if patient had further questions before proceeding with these interventions, and she did not. Within approximately 5 minutes of this discussion, patients friend was helping patient ambulate out of the ED, saying I think were just going to go, thank you as she walked by the nurses station. Departure - Departure Disposition: ED [place] Clinical Impression: Vomiting Qualifiers: Vomiting type: unspecified Vomiting Intractability: non-intractable Nausea presence: with nausea Qualified Code(s): R11.2 - Nausea with vomiting, unspecified Discharge Date/Time: 09/22/19 22:10
== END 2019-09-22 22:10 | disposition left against medical advice (07) ==
LOC: ED 20:34
DX: R11.2 Nausea with vomiting, unspecified (principal); F17.200 Nicotine dependence, unspecified, uncomplicated
CPT/HCPCS: 81001; 81003; 87086; 99283; 99284

== ENCOUNTER 2020-01-03 13:03 | Emergency (ER) | payer MEDICAID ==
[2020-01-03] MEDS ORDERED: DICYCLOMINE 10 MG CAPSULE PO STA (13:24)
--- NOTE | 2020-01-03 13:26 | ED Physician Documentation ---
PD HPI ABD PAIN - Stated complaint Stated Complaint: NAUSEA, CRAMPING, VOMITING - Chief complaint Chief Complaint: Abd Pain - History obtained from History obtained from: Patient - Additional information Additional information: 29-year-old woman presents with chronic abdominal pain. She says for years she has had upper abdominal pain especially in the morning associated with nausea. Also occasional pelvic cramping. The whole issue was kind of underdiagnosed because of some other health issues she had, but she has noticed it more lately. She has a history of a remote laparoscopic appendectomy. She did note that on a recent vacation to [place] where she was less stressed she really did not notice the abdominal pain. She saw her physician a few weeks ago for this, he put her on omeprazole which has not been helpful. He also did a Helicobacter pylori test which was negative. No other diagnostics have been done. Review of Systems Ten Systems: 10 systems reviewed and negative Constitutional: reports: Weight Loss (She was in half-way and noted rapid weight loss while there.). 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 : None HEENT: None Psych: None Musculoskeletal: Other Derm: None - Past Surgical History Past Surgical History: Yes General: Appendectomy - Present Medications Home Medications: Ambulatory Orders Medication Instructions Recorded Confirmed Baclofen 10 mg PO DAILY 01/03/20 01/03/20 Buprenorphine HCl/Naloxone HCl 1 each SL 01/03/20 [Suboxone 8 mg-2 mg Sl Film] DULoxetine [Cymbalta] 20 mg PO DAILY 01/03/20 01/03/20 Dicyclomine [Bentyl] 1 - 2 tab PO QID PRN #20 capsule 01/03/20 Ondansetron HCl [Zofran] 4 mg PO PRN 01/03/20 Pantoprazole [Protonix] 40 mg PO 01/03/20 Pramipexole Di-HCl [Mirapex] 0.125 mg PO 01/03/20 Propranolol [Inderal] 10 mg PO PRN PRN 01/03/20 01/03/20 traZODone [Desyrel] 50 mg PO ONCE 01/03/20 01/03/20 - Allergies Allergies/Adverse Reactions: Allergies Allergy/AdvReac Type Severity Reaction Status Date / Time Penicillins Allergy Mild Unknown Verified 01/03/20 13:12 - Social History Does the pt smoke?: Yes Smoking Status: Current every day smoker Does the pt drink ETOH?: Yes Does the pt have substance abuse?: No - Immunizations Immunizations are current?: Yes - POLST Patient has POLST: No PD ED PE NORMAL - Vitals Vital signs reviewed: Yes - General General: Alert and oriented X 3, No acute distress - Neck Neck: Supple, no meningeal sign, No bony TTP - Cardiac Cardiac: RRR, No murmur - Respiratory Respiratory: No respiratory distress, Clear bilaterally - Abdomen Abdomen: Normal bowel sounds, Soft, Non tender - Back Back: No CVA TTP, No spinal TTP - Extremities Extremities: No edema, No calf tenderness / cord - Neuro Neuro: Alert and oriented X 3, Normal speech Results - Vitals Vitals: Vital Signs - 24 hr 01/03/20 01/03/20 13:08 15:15 Temperature 36.7 C 36.7 C Heart Rate 77 86 Respiratory 16 18 Rate Blood Pressure 128/64 117/60 O2 Saturation 99 99 Oxygen O2 Source Room air - Labs Labs: Laboratory Tests 01/03/20 01/03/20 01/03/20 13:07 13:45 13:45 WBC 7.4 RBC 4.30 Hgb 13.7 Hct 42.2 MCV 98.1 MCH 31.9 H MCHC 32.5 RDW 13.6 Plt Count 393 MPV 9.2 Neut # (Auto) 4.9 Lymph # (Auto) 2.0 [place] # (Auto) 0.4 Eos # (Auto) 0.1 Baso # (Auto) 0.1 Absolute Nucleated RBC 0.00 Nucleated RBC % 0.0 Sodium 143 Potassium 3.8 Chloride 105 Carbon Dioxide 25 Anion Gap 13.0 BUN 14 Creatinine 0.7 Estimated GFR (MDRD) 99 Glucose 123 H Calcium 9.2 Total Bilirubin 0.4 AST 22 ALT 17 Alkaline Phosphatase 66 Total Protein 6.9 Albumin 4.1 Globulin 2.8 Albumin/Globulin Ratio 1.5 Lipase 26 Urine Color YELLOW Urine Clarity CLEAR Urine pH 7.5 Ur Specific [place] 1.020 Urine Protein NEGATIVE Urine Glucose (UA) NEGATIVE Urine Ketones NEGATIVE Urine Occult Blood NEGATIVE Urine Nitrite NEGATIVE Urine Bilirubin NEGATIVE Urine Urobilinogen 0.2 (NORMAL) Ur Leukocyte Esterase NEGATIVE Ur Microscopic Review NOT INDICATED Urine Culture Comments NOT INDICATED Urine HCG, Qual NEGATIVE Urine Opiates Screen NEGATIVE Ur Oxycodone Screen NEGATIVE Urine Methadone Screen NEGATIVE Ur Propoxyphene Screen NEGATIVE Ur Barbiturates Screen NEGATIVE Ur Tricyclics Screen NEGATIVE Ur Phencyclidine Scrn NEGATIVE Ur Amphetamine Screen NEGATIVE U Methamphetamines Scrn NEGATIVE U Benzodiazepines Scrn NEGATIVE Urine Cocaine Screen NEGATIVE U Cannabinoids Screen POSITIVE H PD MEDICAL DECISION MAKING - ED course ED course: 29-year-old woman with chronic episodic upper abdominal pain and nausea, benign exam. Work-up showed normal labs, CT with concern for mesenteric adenitis but t his was discussed with the patient does not actually fit the clinical scenario. We discussed her marijuana use, she does find relief from a hot shower but the more chronic, non-episodic nature is not suggestive of this diagnosis. That said she will trial abstinence to see it is helpful. Departure - Departure Disposition: 01 Home, Self Care Clinical Impression: Abdominal pain Qualifiers: Abdominal location: epigastric Qualified Code(s): R10.13 - Epigastric pain Condition: Good Record reviewed to determine appropriate education?: Yes Instructions: ED Abdominal Pain Unkn Cause Prescriptions: Dicyclomine [Bentyl] 1 - 2 tab PO QID PRN #20 capsule PRN Reason: Abdominal Pain Comments: The cause of your abdominal pain is not completely clear. As discussed it could be Irritable bowel syndrome/IBS, in which case the dicyclomine/Bentyl will be helpful. It also could be from marijuana use, try abstaining for at least a we ek to see if it helps her symptoms. Return if worsening. Follow-up with gastroenterology as you are already planning. Discharge Date/Time: 01/03/20 15:17
[2020-01-03] MEDS ORDERED: IOVERSOL 320 100 ML VIAL IVP ONE ×2 (13:35→14:38)
[2020-01-03 13:36] LABS: MUDS CUTOFF CONCENTRATIONS CUTOFF CONC BELOW:
[2020-01-03 13:43] LABS: BILIRUBIN,URINE NEGATIVE (NEGATIVE); GLUCOSE, URINE (UA) NEGATIVE (NEGATIVE); KETONES,URINE (UA) NEGATIVE (NEGATIVE); LEUKOCYTE ESTERASE, URINE NEGATIVE (NEGATIVE); NITRITE,URINE NEGATIVE (NEGATIVE); OCCULT BLOOD,URINE NEGATIVE (NEGATIVE); PH,URINE 7.5 PH (5.0-7.5); PROTEIN,URINE NEGATIVE (NEGATIVE); UROBILINOGEN,URINE 0.2 (NORMAL) E.U./dL (NORMAL)
[2020-01-03 13:45] LABS: CLARITY,URINE CLEAR (CLEAR)
[2020-01-03 13:46] LABS: HCG UR QUAL NEGATIVE
[2020-01-03 13:50] LABS: BASOPHILS # (AUTO) 0.1 10^3/uL (0.0-0.1); BASOPHILS % (AUTO) 0.8 %; EOSINOPHILS # (AUTO) 0.1 10^3/uL (0.0-0.7); EOSINOPHILS % (AUTO) 0.8 %; HGB - HEMOGLOBIN 13.7 g/dL (12.0-16.0); LYMPHOCYTES % (AUTO) 27.4 %; MEAN CORPUSCULAR HEMOGLOBIN 31.9 pg (27.0-31.0); MEAN CORPUSCULAR HGB CONC 32.5 g/dL (32.0-36.0); MEAN CORPUSCULAR VOLUME 98.1 fL (81.0-99.0); MEAN PLATELET VOLUME 9.2 fL (7.9-10.8); MONOCYTES # (AUTO) 0.4 10^3/uL (0.0-1.0); MONOCYTES % (AUTO) 5.1 %; NEUTROPHILS # (AUTO) 4.9 10^3/uL (1.5-6.6); NEUTROPHILS % (AUTO) 65.6 %; PLT - PLATELET COUNT 393 10^3/uL (130-450); RED CELL DISTRIBUTION WIDTH 13.6 % (12.0-15.0); WHITE BLOOD COUNT 7.4 x10^3/uL (4.8-10.8)
[2020-01-03 13:52] LABS: AMPHETAMINE SCREEN,URINE NEGATIVE (NEGATIVE); BENZODIAZEPINES SCREEN, URINE NEGATIVE (NEGATIVE); COCAINE SCREEN URINE NEGATIVE (NEGATIVE); METHADONE SCREEN, URINE NEGATIVE (NEGATIVE); METHAMPHETAMINES SCREEN, URINE NEGATIVE (NEGATIVE); OPIATE SCREEN, URINE NEGATIVE (NEGATIVE); OXYCODONE SCREEN, URINE NEGATIVE (NEGATIVE); PROPOXYPHENE SCREEN, URINE NEGATIVE (NEGATIVE); TRICYCLIC ANTIDEPRESSANT,URINE NEGATIVE (NEGATIVE)
[2020-01-03 14:05] LABS: ALBUMIN 4.1 g/dL (3.2-5.5); ALBUMIN/GLOBULIN RATIO 1.5 (1.0-2.2); BILIRUBIN,TOTAL 0.4 mg/dL (0.2-1.0); CALCIUM 9.2 mg/dL (8.5-10.3); CREATININE 0.7 mg/dL (0.4-1.0); TOTAL PROTEIN 6.9 g/dL (6.7-8.2)
--- NOTE | 2020-01-03 14:45 | CT Report ---
PROCEDURE: Abdomen/Pelvis W INDICATIONS: IV only, abd pain PT STATES CHRONIC GI ISSUES, GERNERALIZED ABD PAIN W/EMISIS LAST FEW DAYS CONTRAST: IV CONTRAST: Optiray 320 ml: 100 PO CONTRAST: *NO PO CONTRAST TECHNIQUE: After the administration of IV and no oral contrast, 5 mm thick sections acquired from the diaphragms to the symphysis. 5 mm thick coronal and sagittal reformats were acquired. For radiation dose redu ction, the following was used: automated exposure control, adjustment of mA and/or kV according to p atient size. COMPARISON: 12.02 FINDINGS: Image quality: Excellent. ABDOMEN: Lung bases: Lung bases are clear. Heart size is normal. Solid organs: Liver and spleen are normal in size and enhancement. Gallbladder Biliary system is non dilated. Pancreas enhances normally. No adrenal nodules. Kidneys demonstrate normal size an d enhancement, without hydronephrosis. Peritoneum and bowel: Bowel loops demonstrate normal wall thickness and caliber. Appendix not seen. No evidence of appendicitis. No free fluid or air. Nodes and vessels: No retroperitoneal or mesenteric adenopathy by size criteria. Multiple mildly pr ominent mesenteric lymph nodes measuring less than 10 mm short axis. Aorta and inferior vena cava are normal in size. Miscellaneous: No ventral hernias. PELVIS: Genitourinary: Bladder wall thickness is normal. Miscellaneous: No inguinal hernias or adenopathy. Bones: No suspicious bony lesions. No vertebral body compression fractures. IMPRESSION: 1. Findings suggestive of mesenteric adenitis. Reviewed by: Peter Steward MD on 01/03/2020 1:43 PM [facility] Approved by: Peter Steward MD on 01/03/2020 1:43 PM [facility] Station ID: [id number]
[2020-01-03 15:16] VITALS: BP 117/60
== END 2020-01-03 15:17 | disposition home or self-care (01) ==
LOC: ED 13:03
DX: R10.13 Epigastric pain (principal); G89.29 Other chronic pain; R11.0 Nausea; F12.90 Cannabis use, unspecified, uncomplicated; F17.200 Nicotine dependence, unspecified, uncomplicated
CPT/HCPCS: 36415; 74177; 80053; 80306; 81003; 81025; 83690; 85025; 99284; A9270; Q9967; 81001; 87086

== ENCOUNTER 2020-01-17 15:21 | Emergency (ER) | payer MEDICAID ==
[2020-01-17] MEDS ORDERED: diphenhydrAMINE INJ 50 MG/ML VIAL IM STA (16:16)
[2020-01-17] MEDS ORDERED: HALOPERIDOL 5 MG/ML VIAL IM ONE (16:16)
[2020-01-17 16:48] VITALS: BP 91/53
--- NOTE | 2020-01-17 17:02 | ED Physician Documentation ---
History of Present Illness - Stated complaint Stated Complaint: ABD PX - Chief complaint Chief Complaint: Abd Pain - History obtained from History obtained from: Patient - History of Present Illness Pain level max: 6 Pain level now: 5 - Additonal information Additional information: 29-year-old female presents to the emergency department with abdominal pain. This been ongoing issue for several years. She does use marijuana daily. Nothing makes it better or worse. States that Zofran is not helping. No fevers. No chills. Denies any possibility of . Pain is described as crampy. Review of Systems Constitutional: denies: Fever, Chills Respiratory: denies: Cough GI: reports: Abdominal Pain, Nausea. denies: Vomiting, Diarrhea : denies: Dysuria Skin: denies: Rash Musculoskeletal: denies: Neck pain, Back pain Neurologic: denies: Headache PD PAST MEDICAL HISTORY - Past Medical History Past Medical History: Yes Cardiovascular: None Respiratory: None Neuro: Other Endocrine/Autoimmune: None GI: None DATABASE MODELER: None : None HEENT: None Psych: Depression, Anxiety Musculoskeletal: Other Derm: None Other Past Medical History: Trigeminal neuralgia - Past Surgical History Past Surgical History: Yes General: Appendectomy - Present Medications Home Medications: Ambulatory Orders Medication Instructions Recorded Confirmed Baclofen 10 mg PO DAILY 01/03/20 01/03/20 Buprenorphine HCl/Naloxone HCl 1 each SL 01/03/20 [Suboxone 8 mg-2 mg Sl Film] DULoxetine [Cymbalta] 20 mg PO DAILY 01/03/20 01/03/20 Dicyclomine [Bentyl] 1 - 2 tab PO QID PRN #20 capsule 01/03/20 Ondansetron HCl [Zofran] 4 mg PO PRN 01/03/20 Pantoprazole [Protonix] 40 mg PO 01/03/20 Pramipexole Di-HCl [Mirapex] 0.125 mg PO 01/03/20 Propranolol [Inderal] 10 mg PO PRN PRN 01/03/20 01/03/20 traZODone [Desyrel] 50 mg PO ONCE 01/03/20 01/03/20 - Allergies Allergies/Adverse Reactions: Allergies Allergy/AdvReac Type Severity Reaction Status Date / Time Penicillins Allergy Mild Unknown Verified 01/17/20 15:25 - Social History Does the pt smoke?: Yes Smoking Status: Current every day smoker Does the pt drink ETOH?: No Does the pt have substance abuse?: No Substance Use and Type: Marijuana - Immunizations Immunizations are current?: Yes - POLST Patient has POLST: No PD ED PE NORMAL - Vitals Vital signs reviewed: Yes - General General: Alert and oriented X 3, No acute distress - HEENT HEENT: Moist mucous membranes - Neck Neck: Supple, no meningeal sign - Cardiac Cardiac: RRR - Respiratory Respiratory: No respiratory distress, Clear bilaterally - Abdomen Abdomen: Soft, Non tender, Non distended - Derm Derm: Warm and dry - Extremities Extremities: No edema, No calf tenderness / cord - Neuro Neuro: Alert and oriented X 3 Results - Vitals Vitals: Vital Signs - 24 hr 01/17/20 16:47 Temperature 36.7 C Heart Rate 72 Respiratory 16 Rate Blood Pressure 91/53 L O2 Saturation 98 Oxygen O2 Source Room air PD MEDICAL DECISION MAKING - ED course Complexity details: reviewed old records, re-evaluated patient, considered differential, d/w patient ED course: Patient with what appears to be cannabinoid induced hyperemesis. She feels much better after haloperidol. Symptoms resolved. Recommend that she stop using marijuana. Patient counseled regarding signs and symptoms for which I believe and urgent re-evaluation would be necessary. Patient with good understanding of and agreement to plan and is comfortable going home at this time This document was made in part using voice recognition software. While efforts are made to proofread this document, sound alike and grammatical errors may occur. Departure - Departure Disposition: 01 Home, Self Care Clinical Impression: Cannabinoid hyperemesis syndrome Condition: Good Instructions: ED Nausea Vomiting Follow-Up: BRIANNA HERNANDEZ DO [Primary Care Provider] - Within 1 week Comments: Return if you worsen. You should stop using marijuana for at least 3 months and see how this changes your symptoms. Discharge Date/Time: 01/17/20 17:06
== END 2020-01-17 17:06 | disposition home or self-care (01) ==
LOC: ED 15:21
DX: R11.0 Nausea (principal); F12.988 Cannabis use, unspecified with other cannabis-induced disorder; R10.9 Unspecified abdominal pain; F17.200 Nicotine dependence, unspecified, uncomplicated
CPT/HCPCS: 96372; 99283; 99284; J1200